=== PATIENT | male | born 1990 | race Caucasian/White ===

== ENCOUNTER 2023-02-07 04:05 | Inpatient (IN) ==
--- OUTSIDE RECORDS SUMMARY | 2023-02-07 04:12 | External Medical Summary | Summary of Care ---
Author Name Unknown Organization [facility] Address [address] [place] [address] Phone [phone] Care Team Providers Care Loan Services Professional Name Role Phone Kike Garcia DO Primary Care Provider Reason for Visit * Reason Comments Ear Pain Encounter Details Date Type Department Care Team Description 11/10/2022 Convenient Care Visit [facility] [address] [place] [address] Rebekah Ling PA-C [address], [place] [id number] Dysfunction of right eustachian tube*; Right otitis media with effusion Allergies No known active allergiesdocumented as of this encounter (statuses as of 11/10/2022) Medications Medication Sig Dispensed Refills Start Date End Date Status Indomethacin ER 75 MG Oral Capsule Extended Release (Indocin SR)Indications:Gout of big toe Take by mouth 1 Capsule in the morning. 60 Capsule 5 11/10/2021 Active Losartan Potassium-HCTZ 100-25 MG Oral Tablet (Hyzaar) Take 1 Tablet by mouth in the morning. 90 Tablet 3 03/29/2022 Active Cetirizine HCl 10 MG Oral CapsuleIndications: Chronic rhinitis Take 1 Capsule by mouth in the morning. 30 Capsule 1 09/26/2022 Active methylPREDNISolone 4 MG Oral Tablet Therapy Pack (Medrol Dosepack)Indication s:Dysfunction of right eustachian tube follow package directions 21 Tablet 0 11/10/2022 Active documented as of this encounter (statuses as of 11/10/2022) Active Problems Problem Noted Date Gout of big toe 05/02/2022 Body mass index (BMI) of 50.0 to 59.9 in adult 01/24/2022 Overview: Per Obesity protocol Prediabetes 11/22/2021 Overview: Per Prediabetes protocol Hypertensive urgency 11/10/2021 HTN, goal below 140/90 11/10/2021 Chronic pain of right knee 11/10/2021 Morbid obesity due to excess calories Ambulatory dysfunction 11/10/2021 Primary hypercoagulable state 04/21/2009 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 documented as of this encounter (statuses as of 11/10/2022) Resolved Problems Problem Noted Date Resolved Date OBESITY, PEDS, BMI 99TH PERCENTL OR GREATER 04/1408/10/2011 Overview: Per Obesity Taxonomy Diarrhea 01/15/2009 02/17/2012 Nausea with vomiting 01/15/2009 08/10/2011 OBESITY, UNSPECIFIED 08/22/2000 05/07/2009 Overview: Per Obesity Taxonomy Abnormal weight gain 11/02/1998 08/10/2011 Behavioral problems 05/08/1997 08/10/2011 Overview: ICD-10 update of inactive term documented as of this encounter (statuses as of 11/10/2022) Immunizations Name Administration Dates Next Due Hep A - Hepatitis A (ped/adole, 1-18 Yrs) 2007,05/22/2007 Meningococcal Conjugate Vaccine (Menactra/Menveo ) 11/21/2007 TDAP (age 11 and older)(Adacel) 05/22/2007 Varicella Vaccine (Chicken Pox) 05/22/2007 documented as of this encounter Social History Tobacco Use Types Packs/Day Years Used Date Smoking Tobacco: Never Smokeless Tobacco: Current Chew Tobacco Cessation:Ready to Q uit: Not Asked; Counseling Given: Not Answered Comments:10 cans a week X 4 years Alcohol Use Standard Drinks/Week Comments Yes 0 (1 standard drink = 0.6 oz pur e alcohol) Occassionally: once a month Sex Assigned at Date Recorded Not on file Job Start Date Occupation Industry Not on file Not on file Not on file documented as of this encounter Last Filed Vital Signs Vital Sign Reading Time Taken Comments Blood Pressure 140/80 11/10/2022 5:05 PM EDT Pulse 97 11/10/2022 5:05 PM EDT Temperature 36.8 C (98.2 F) 11/10/2022 5:05 PM ED T Respiratory Rate 16 11/10/2022 5:05 PM EDT Oxygen Saturation 96% 11/10/2022 5:05 PM EDT Inhaled Oxygen Concentration - - Weight 178.3 kg (393 lb) 11/10/2022 5:05 PM EDT Height 185.4 cm (6' 1") 11/10/2022 5:05 PM EDT Body Mass Index 51.85 11/10/2022 5:05 PM EDT documented in this encounter Patient Instructions * Patient Instructions* Rebekah Ling PA-C - 11/10/2022 5:56 PM EDT Try some gum and this might help your ear pop documented in this encounter Progress Notes * Rebekah Ling PA-C - 11/10/2022 5:46 PM EDT Subjective: Nursing Notes: Bruna Damon, RT 11/10/22 1709 Signed [place] is a 32 year old male who presents to walk-in clinic today complaining of Chief Complaint Patient presents with Ear Pain Main Symptoms: RT ear pain, slight congestion How lon day Tried: nothing Pt accompanied by: self Sx are right ear pain x 1 d. Have similar about 6-7 weeks ago and amoxicillin- clav that he took forsalivary gland infection seemed to help. Did not want to let it go this time. Denies neck pain or other upper respiratory infection related symptoms no sick contacts at home. Sig med hx/risk factors: obesity no flu shot this year. Review of Systems Constitutional: Negative. Negative for activity change, appetite change, fatigue and fever. HENT: Positive for ear pain (right with feeling of water deep in ear with pressure). Negative for congestion, postnasal drip, rhinorrhea, sinus pressure, sinus pain, sore throat and voice change. Eyes: Negative for discharge and redness. Respiratory: Negative for cough, chest tightness, shortness of breath and wheezing. Cardiovascular: Negative for chest pain. Musculoskeletal: Negative for arthralgias, neck pain and neck stiffness. Allergic/Immunologic: Negative for environmental allergies. Neurological: Negative for dizziness. Hematological: Negative for adenopathy. PMH: Patient Active Problem List Diagnosis Code EYE ANOMALY NOS - Lazy Eye Q15.9 COAGULAT DEFECT NEC-NOS - Factor V D68.9 Primary hypercoagulable state ([facility]) D68.59 Hypertensive urgency I16.0 HTN, goal below 140/90 I10 Chronic pain of right knee M25.561, G89.29 Morbid obesity due to excess calories ([facility]) E66.01 Ambulatory dysfunction R26.2 Prediabetes R73.03 Body mass index (BMI) of 50.0 to 59.9 in adult ([facility]) Z68.43 Gout of big toe M10.9 Current Outpatient Medications Medication Sig Dispense Refill Indomethacin ER 75 MG Oral Capsule Extended Release (Indocin SR) Take by mouth 1 Capsule in the morning. 60 Capsule 5 Losartan Potassium-HCTZ 100-25 MG Oral Tablet (Hyzaar) Take 1 Tablet by mouth in the morning. 90 Tablet 3 Cetirizine HCl 10 MG Oral Capsule Take 1 Capsule by mouth in the morning. 30 Capsule 1 methylPREDNISolone 4 MG Oral Tablet Therapy Pack (Medrol Dosepack) follow package directions 21 Tablet 0 No current facility-administered medications for this visit. Past Medical History: Diagnosis Date Obesity, BMI not known Past Surgical History: Procedure Laterality Date NONE Review of patient's allergies indicates: No Known Allergies Objective: BP 140/80 (BP Site: Left Arm, BP Position: Sitting, BP Cuff Size: Regular) | Pulse 97 | Temp 36.8 C (98.2 F) (Tympanic) | Resp 16 | Ht 1.854 m (6' 1") | Wt (!) 178.3 kg (393 lb) | SpO2 96% | BMI 51.85 kg/m | BSA 3.03 m Physical Exam Constitutional: Appearance: Normal appearance. He is obese. HENT: Head: Normocephalic. Right Ear: Ear canal and external ear normal. Left Ear: Tympanic membrane, ear canal and external ear normal. Ears: Comments: R TM not infection but appears to have effusion Nose: No congestion or rhinorrhea. Mouth/Throat: Pharynx: No oropharyngeal exudate or posterior oropharyngeal erythema. Eyes: Extraocular Movements: Extraocular movements intact. Conjunctiva/sclera: Conjunctivae normal. Cardiovascular: Rate and Rhythm: Normal rate and regular rhythm. Heart sounds: Normal heart sounds. Pulmonary: Effort: Pulmonary effort is normal. Breath sounds: Normal breath sounds. No wheezing or rhonchi. Musculoskeletal: Cervical back: Normal range of motion. No rigidity or tenderness. No muscular tenderness. Lymphadenopathy: Cervical: No cervical adenopathy. Skin: Findings: No rash. Neurological: Mental Status: He is alert and oriented to person, place, and time. Psychiatric: Mood and Affect: Mood normal. Thought Content: Thought content normal. Judgment: Judgment normal. ASSESSMENT/PLAN: Dysfunction of right eustachian tube (Primary) - methylPREDNISolone 4 MG Oral Tablet Therapy Pack (Medrol Dosepack); follow package directions Right otitis media with effusion Patient Instructions Try some gum and this might help your ear pop Discussed OME and eustachian tube dysfunction Return instruction reviewed with pt in detail. Reasons to report to the ED were also reviewed. Voiced understanding Advised to follow up if no improvement in 3-5days. Rebekah Ling PA-C documented in this encounter Nursing Notes * RT Rosa - 11/10/2022 5:06 PM EDT [place] is a 32 year old male who presents to walk-in clinic today complaining of Chief Complaint Patient presents with Ear Pain Main Symptoms: RT ear pain, slight congestion How lon day Tried: nothing Pt accompanied by: self documented in this encounter Plan of Treatment Upcoming Encounters Date Type Specialty Care Team Description 02/01/2023 Office Visit Cardiology Nuno, STEVIE Senior [address] [place] [id number] 11/09/2023 Office Visit Family Medicine Kike Garcia DO [address] [place] [address] Health Maintenance Due Date Last Done Comments COVID-19 Vaccine (#1) 1991 Depression Screening 2003 Albumin/Creatinine Ratio 04/17/2009 DTaP,Tdap,and Td Vaccines (7 - Td or Tdap) 05/21/2017 05/22/2007, 01/16/1997, 11/03/1992, Additional history exists Influenza Vaccine (FLU shot) (#1) 2022 HbA1c 11/10/2022 11/10/2021, 04/14, 09/29/2000, Additional history exists GFR 04/04/2023 04/04/2022, 10/15, 03/12/2009 Hepatitis B Completed 04/27/1993, 11/14, 11/03/1992 MENINGOCOCCAL (MENACTRA/MENVEO) Completed 11/21/2007 GARDASIL-HPV IMMUNIZATION SERIES Aged Out No longer eligible based on patient's age to complete this topic Pneumococcal Vaccine: Pediatrics (0 to 5 Years) and At-Risk Patients (6 to 64 Years) Aged Out No longer eligible based on patient's age to complete this topic documented as of this encounter Medical Devices Not on filedocumented as of this encounter Visit Diagnoses Diagnosis Dysfunction of right eustachian tube- Primary Dysfunction of Eustachian tube Right otitis media with effusion Nonsuppurative otitis media, not specified as acute or chronic documented in this encounter Care Teams Loan Services Professional Relationship Specialty Start Date End Date Kike Garcia DO [address] [place] [address] PCP - General Family Medicine 11/10/21 documented as of this encounter
--- OUTSIDE RECORDS SUMMARY | 2023-02-07 04:12 | External Medical Summary ---
Author Name Unknown Address Unknown Organization [id number]:[facility] [place] [address] [place] [address] Laboratory Report Ordering Provider Test Date Status ANGÉLICA DEMPSEY 02/01/2023 09:11:33 Final Observation Date Value Abnormality Reference (Units ) Status Uric Acid 02/01/2023 09:11:33 9.2 Above high normal 3. 4-7.0 (mg/dL) Final Performing Location [facility] - [address] [place] [address]
--- OUTSIDE RECORDS SUMMARY | 2023-02-07 04:12 | External Medical Summary | Summary of Care ---
Author Name Unknown Organization [facility] Address [address] [place] [address] Phone [phone] Care Team Providers Care Mimeographer Name Role Phone Kike Garcia DO Primary Care Provider Reason for Visit * Reason Comments Outpatient Testing Encounter Details Date Type Department Care Team (Late st Contact Info) Description 02/01/2023 9:50 AM EST Laboratory Laboratory, [facility] [address] [place] [address] [facility] [address] [place] [address] HTN, goal below 140/90; Dyslipidemia, goal LDL below 130; Prediabetes; Gout of big toe; Sinus tachycardia Allergies No known active allergiesdocumented as of this encounter (statuses as of 02/01/2023) Medications Medication Sig Dispensed Refills Start Date End Date Status Indomethacin ER 75 MG Oral Capsule Extended Release (Indocin SR)Indications:Gout of big toe Take by mouth 1 Capsule in the morning. 60 Capsule 5 11/10/2021 Active amLODIPine Besylate 2.5 MG Oral Tablet (Norvasc)Indications: Sinus tachycardia,HTN, goal below 140/90,LVH (left ventricular hypertrophy) Take 1 Tablet by mouth in the morning. 34 Tablet 11 02/01/2023 Active Losartan Potassium-HCTZ 100-25 MG Oral Tablet (Hyzaar)Indications:S inus tachycardia,HTN, goal below 140/90,LVH (left ventricular hypertrophy) Take 1 Tablet by mouth in the morning. 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 documented as of this encounter (statuses as of 02/01/2023) Resolved Problems Problem Noted Date Diagnosed Date Resolved Date OBESITY, PEDS, BMI 99TH PERCENTL OR GREATER 05/07/2009 08/10/2011 Overview: Per Obesity Taxonomy Diarrhea 01/15/2009 02/17/2012 Nausea with vomiting 01/15/2009 012 OBESITY, UNSPECIFIED 08/22/2000 010 Overview: Per Obesity Taxonomy Abnormal weight gain 11/02/1998 012 Behavioral problems 05/08/1997 08/10/19 12 Overview: ICD-10 update of inactive term documented as of this encounter (statuses as of 02/01/2023) Immunizations Name Administration Dates Next Due Hep A - Hepatitis A (ped/adole, 1-18 Yrs) 2007,05/22/2007 Meningococcal Conjugate Vaccine (Menactra/Menveo ) 11/21/2007 TDAP (age 11 and older)(Adacel) 05/22/2007 Varicella Vaccine (Chicken Pox) 05/22/2007 documented as of this encounter Social History Tobacco Use Types Packs/Day Years Used Date Smoking Tobacco: Never Smokeless Tobacco: Current Chew Comments:10 cans a week X 4 years Alcohol Use Standard Drinks/Week Comments Yes 0 (1 standard drink = 0.6 oz pur e alcohol) Occassionally: once a month Sex and Gender Information Value Date Recorded Sex Assigned at Not on file Gender Identity Not on file Sexual Orientation Not on file Job Start Date Occupation Industry Not on file Not on file Not on file documented as of this encounter Plan of Treatment Upcoming Encounters Date Type Department Care Team (Late st Contact Info) Description 04/20/2023 3:00 PM EST Cardiac Studies Cardiac Studies, [facility] [address] [place] [address] 11/09/2023 5:40 PM EDT Office Visit Family Practice [facility] [address] [place] [address] Kike Garcia, [address] [place] [phone] Pending Results Name Type Priority Associated Diagnoses Date /Time CBC WITH WBC DIFFERENTIAL Lab Routine HTN, goal below 140/90 02/01/2023 9:11 AM EST COMPREHENSIVE METABOLIC PANEL Lab Routine Dyslipidemia, goal LDL below 130 02/01/2023 9:11 AM EST HEMOGLOBIN A1C Lab Routine Prediabetes 02/01/2023 9:11 AM EST LIPID PANEL WITH DIRECT LDL IF TG IS HIGH Lab Routine Dyslipidemia, goal LDL below 130 02/01/2023 9:11 AM EST URIC ACID Lab Routine Gout of big toe 02/01/2023 9:11 AM EST MAGNESIUM Lab Routine Sinus tachycardia HTN, goal below 140/90 02/01/2023 9:11 AM EST TSH WITH FREE T4 IF INDICATED Lab Routine Sinus tachycardia HTN, goal below 140/90 02/01/2023 9:11 AM EST CBC Lab Routine HTN, goal below 140/90 02/01/2023 9:11 AM EST DIFFERENTIAL, AUTOMATED Lab Routine HTN, goal below 140/90 02/01/2023 9:11 AM EST Health Maintenance Due Date Last Done Comments [...] as of this encounter Visit Diagnoses Diagnosis HTN, goal below 140/90 Unspecified essential hypertension Dyslipidemia, goal LDL below 130 Other and unspecified hyperlipidemia Prediabetes Other abnormal glucose Gout of big toe Acute gouty arthropathy Sinus tachycardia Other specified cardiac dysrhythmias documented in this encounter Care Teams Mimeographer Relationship Specialty Start Date End Date Kike Garcia DO [address] [place] [id number] PCP - General Family Medicine 11/10/21 documented as of this encounter
--- OUTSIDE RECORDS SUMMARY | 2023-02-07 04:12 | External Medical Summary | Summary of Care ---
Author Name Unknown Organization [facility] Address [address] [place] [address] Phone [phone] Care Team Providers Care Quality Assurance Auditor Name Role Phone Kike Garcia DO Primary Care Provider Reason for Visit * Reason Comments Ear Pain Encounter Details Date Type Department Care Team Description 09/26/2022 Convenient Care Visit [facility] [address] [place] [address] Rebekah Ling PA-Tiffany [address] [place], [place] [id number] Dysfunction of right eustachian tube*; Chronic rhinitis; Salivary gland disorder; Non-recurrent acute serous otitis media of right ear Allergies No known active allergiesdocumented as of this encounter (statuses as of 09/26/2022) Medications Medication Sig Dispensed Refills Start Date End Date Status Indomethacin ER 75 MG Oral Capsule Extended Release (Indocin SR)Indications:Gout of big toe Take by mouth 1 Capsule in the morning. 60 Capsule 5 11/10/2021 Active Losartan Potassium-HCTZ 100-25 MG Oral Tablet (Hyzaar) Take 1 Tablet by mouth in the morning. 90 Tablet 3 03/29/2022 Active Cetirizine HCl 10 MG Oral CapsuleIndications:C hronic rhinitis Take 1 Capsule by mouth in the morning. 30 Capsule 1 09/26/2022 Active Amoxicillin-Pot Clavulanate 500-125 MG Oral Tablet (Augmentin)Indicatio ns:Salivary gland disorder Take 1 Tablet by mouth in the morning and 1 Tablet before bedtime. Do all this for 10 days. 20 Tablet 0 09/26/2022 10/06/2022 Active documented as of this encounter (statuses as of 09/26/2022) Active Problems Problem Noted Date Gout of [...] as of this encounter (statuses as of 09/26/2022) Resolved Problems Problem Noted Date Resolved Date OBESITY, PEDS, BMI 99TH PERCENTL OR GREATER 04/1408/10/2011 Overview: Per Obesity Taxonomy Diarrhea 01/15/2009 02/17/2012 Nausea with vomiting 01/15/2009 08/10/2011 OBESITY, UNSPECIFIED 08/22/2000 05/07/2009 Overview: Per Obesity Taxonomy Abnormal weight gain 11/02/1998 08/10/2011 Behavioral problems 05/08/1997 08/10/2011 Overview: ICD-10 update of inactive term documented as of this encounter (statuses as of 09/26/2022) Immunizations Name Administration Dates Next Due Hep [...] Sign Reading Time Taken Comments Blood Pressure 136/86 09/26/2022 9:42 AM EDT Pulse 107 09/26/2022 9:42 AM EDT Temperature 36.4 C (97.5 F) 09/26/2022 9:42 AM ED T Respiratory Rate 17 09/26/2022 9:42 AM EDT Oxygen Saturation 97% 09/26/2022 9:42 AM EDT Inhaled Oxygen Concentration - - Weight - - Height - - Body Mass Index - - documented in this encounter Patient Instructions * Patient Instructions* Rebekah Ling PA-C - 09/26/2022 10:06 AM EDT Lemon drops, sugarless Can try gum, Avoid internal pressure to ear documented in this encounter Progress Notes * Rebekah Ling PA-C - 09/26/2022 9:54 AM EDT Subjective: Nursing Notes: Denisa Condon LPN 09/26/22 0957 Signed [place] is a 32 year old male who presents to walk-in clinic today complaining of Chief Complaint Patient presents with Ear Pain Main Symptoms: painful started in the middle of the day. R ear started in the back of his ear down to his jaw and pressure as well and feels like water is in his ear and does have sensitivity as well Cause: unknown How long: Tried: steam, warm compress, warm water, tylenol which did not help, dayquil capsules as well whichdid not help Pt accompanied by: Self Sx are right ear pain that started inferior and then into the ear and above, feels like there is fullness and pressure and some discomfort into the right side of neck both below ear and into the areabelow mid Discomfort and all symptoms come and go and sometimes how he turns head will inc or decrease pressure and discomfort Not swimming no sick contacts at home. Sig med hx/risk factors: prediabetes and obesity Review of Systems Constitutional: Negative for activity change, appetite change, fatigue and fever. HENT: Positive for ear pain (right), postnasal drip and rhinorrhea (has had for months). Negative for congestion, sinus pain, sore throat and voice change. Eyes: Negative for discharge and redness. Respiratory: Negative for cough, chest tightness, shortness of breath and wheezing. Cardiovascular: Negative for chest pain. Gastrointestinal: Negative for abdominal pain, diarrhea, nausea and vomiting. Musculoskeletal: Positive for neck pain (dull, usually mild like a bruise, inferior to the ear and right side just below jaw in middle). Negative for arthralgias and neck stiffness. Skin: Negative. Allergic/Immunologic: Negative for environmental allergies. Neurological: Negative for dizziness. Hematological: Negative for adenopathy. 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 60 Capsule 5 Losartan Potassium-HCTZ 100-25 MG Oral Tablet (Hyzaar) Take 1 Tablet by mouth in the morning. 90 Tablet 3 Cetirizine HCl 10 MG Oral Capsule Take 1 Capsule by mouth in the morning. 30 Capsule 1 Amoxicillin-Pot Clavulanate 500-125 MG Oral Tablet (Augmentin) Take 1 Tablet by mouth in the morning and 1 Tablet before bedtime. Do all this for 10 days. 20 Tablet 0 No current facility-administered medications for this visit. Past Medical History: Diagnosis Date Obesity, BMI not known Past Surgical History: Procedure Laterality Date NONE Review of patient's allergies indicates: No Known Allergies Objective: BP 136/86 | Pulse 107 | Temp 36.4 C (97.5 F) (Tympanic) | Resp 17 | SpO2 97% Physical Exam Constitutional: Appearance: Normal appearance. He is normal weight. HENT: Head: Normocephalic. Right Ear: Ear canal and external ear normal. Left Ear: Tympanic membrane, ear canal and external ear normal. Ears: Comments: TM on the R dull Nose: Rhinorrhea present. No congestion. Mouth/Throat: Pharynx: No oropharyngeal exudate or posterior oropharyngeal erythema. Eyes: Extraocular Movements: Extraocular movements intact. Conjunctiva/sclera: Conjunctivae normal. Cardiovascular: Rate and Rhythm: Normal rate and regular rhythm. Heart sounds: Normal heart sounds. Pulmonary: Effort: Pulmonary effort is normal. Breath sounds: Normal breath sounds. No wheezing or rhonchi. Musculoskeletal: General: Normal range of motion. Cervical back: Normal range of motion. Tenderness (mild to moderate inferior to ear and in area of salivary gland inferior the mandible on right) present. No rigidity. No muscular tenderness. Lymphadenopathy: Cervical: No cervical adenopathy. Skin: Findings: No rash. Neurological: Mental Status: He is alert and oriented to person, place, and time. Psychiatric: Mood and Affect: Mood normal. Thought Content: Thought content normal. Judgment: Judgment normal. ASSESSMENT/PLAN: Dysfunction of right eustachian tube (Primary) Chronic rhinitis - Cetirizine HCl 10 MG Oral Capsule; Take 1 Capsule by mouth in the morning. Salivary gland disorder - Amoxicillin-Pot Clavulanate 500-125 MG Oral Tablet (Augmentin); Take 1 Tablet by mouth in the morning and 1 Tablet before bedtime. Do all this for 10 days. Non-recurrent acute serous otitis media of right ear Patient Instructions Lemon drops, sugarless Can try gum, Avoid internal pressure to ear Follow Up: Return in about 4 weeks (around 10/24/2022) for Clinic Visit. | For: Clinic Visit Discussed that I think there is some fluid in ear and might be assoc w allergies so starting on zrtec Might be reason for the discomfort, discussed that think also might have salivary gland disorder Return instruction reviewed with pt in detail. Reasons to report to the ED were also reviewed. Voiced understanding Advised to follow up if no improvement in 3-5days. Rebekah Ling PA-C documented in this encounter Nursing Notes * Denisa Condon LPN - 09/26/2022 9:42 AM EDT [place] is a 32 year old male who presents to walk-in clinic today complaining of Chief Complaint Patient presents with Ear Pain Main Symptoms: painful started in the middle of the day. R ear started in the back of his ear down to his jaw and pressure as well and feels like water is in his ear and does have sensitivity as well Cause: unknown How long: Tried: steam, warm compress, warm water, tylenol which did not help, dayquil capsules as well whichdid not help Pt accompanied by: Self documented in this encounter Miscellaneous Notes * Pt Handout (on AVS) - Rebekah Ling PA-C - 09/26/2022 10:05 AM EDT [id number] Salivary Gland Swelling, Uncertain Cause Salivary glands make saliva in response to food in your mouth. Saliva is mostly water. It also has minerals and proteins that help break down food and keep the mouth and teeth healthy. There are 3 pairs of salivary glands: Parotid glands. In front of the ear. Submandibular glands. Below the jaw. Sublingual glands. Below the tongue. Each gland has a tube (duct) that carries saliva from the gland into the mouth. The salivary glands can sometimes get swollen. Causes can include: Viral infection (such as childhood mumps) Bacterial infections Sjgren syndrome Diabetes Malnutrition Sarcoidosis Blocked salivary duct (from stones or tumors) Certain medicines can affect salivary flow. This can lead to swollen glands. Tell your healthcare provider about all of the medicines you take. Tests are done to find the cause of the swelling. These may include blood tests, X-ray, ultrasound,CT scan, or injecting dye into the duct to look for blockage. Treatment depends on the exact cause of the swelling. Home care If the area is painful, you can take dayj-mhw-hfcndvy medicines such as acetaminophen or ibuprofen, unless you were prescribed another medicine. If you have chronic liver or kidney disease or everhad a stomach ulcer or gastrointestinal bleeding, talk with your healthcare provider before using these medicines. Wetting a cloth with warm water and putting it over the affected gland for 10 to 15 minutes at a time can also help ease pain. To help prevent blockages and infections: o Drink 6 to 8 glasses of fluid per day (such as water, tea, and clear soup) to keep well-hydrated. o If you smoke, ask your healthcare provider for help to quit. Smoking makes salivary gland stones more likely. o Maintain good dental hygiene. [place] and floss your teeth daily. See your dentist for regular cleanings. Follow-up care Follow up with your healthcare provider, or as advised. See your provider for further exams and testing. If you have been referred to a specialist, make an appointment right away. When to get medical advice Call your healthcare provider right away if any of these occur: More pain or swelling in the gland Unable to open mouth or pain when opening mouth Fever of 100.4F (38C) or higher, or as advised by your provider Redness over the gland Fluid (pus) draining into the mouth Trouble breathing or swallowing Any new symptoms Prevention Here are steps you can take to help prevent an infection: Keep good handwashing habits. Don?t have close contact with people who have sore throats, colds, or other upper respiratory infections. Don?t smoke and stay away from secondhand smoke. Stay up-to-date with all of your vaccines. Last Reviewed Date: 12/14/202119999210-5495 [employer]. All rights reserved. This information is not intended as a substitute for professional medical care. Always follow your healthcare professional's instructions. documented in this encounter Plan of Treatment Upcoming Encounters Date Type Specialty Care Team Description 11/08/2022 Office Visit Family Medicine Kike Garcia DO [address] [place] [address] 02/01/2023 Office Visit Cardiology Sunita Reina CRNP [address] [place] [id number] Health Maintenance Due Date Last Done Comments COVID-19 Vaccine (#1) 1991 Depression Screening, Annual for Pts 12 and Over 2003 Albumin/Creatinine Ratio 04/17/2009 DTaP,Tdap,and Td Vaccines (7 - Td or Tdap) 05/21/2017 05/22/2007, 01/16/1997, 11/03/1992, Additional history exists Influenza Vaccine (FLU shot) (#1) 2022 HbA1c 11/10/2022 11/10/2021, 04/14, 09/29/2000, Additional history exists GFR 04/04/2023 04/04/2022, 10/15, 03/12/2009 Hepatitis B Completed 04/27/1993, 11/14, 11/03/1992 MENINGOCOCCAL (MENACTRA/MENVEO) Completed 11/21/2007 Hepatitis C Screening Completed 11/10/2021 , 11/10/2021, 11/10/2021 GARDASIL-HPV IMMUNIZATION SERIES Aged Out No longer [...] eustachian tube- Primary Dysfunction of Eustachian tube Chronic rhinitis Salivary gland disorder Unspecified disease of the salivary glands Non-recurrent acute serous otitis media of right ear documented in this encounter Care Teams Quality Assurance Auditor Relationship Specialty Start Date End Date Kike Garcia DO [address] [place] [id number] PCP - General Family Medicine 11/10/21 documented as of this encounter"
--- OUTSIDE RECORDS SUMMARY | 2023-02-07 04:12 | External Medical Summary ---
Author Name Unknown Address Unknown Organization [id number]:[facility] [place] [facility] [place] [address] [facility] [address] Laboratory Report Ordering Provider Test Date Status ANGÉLICA DEMPSEY 02/01/2023 09:11:33 Final Observation Date Value Abnormality Reference (Units ) Status HbA1C 02/01/2023 09:11:33 5.8 Above high normal 4. 0-5.6 (%) Final The use of HbA1c to monitor glycemic status is based on normal hemoglobin and HbA composition. This test should not be used in patients with abnormal hemoglobin that affects the half life of the red blood cell or the in vivo glycation rates. Glucose, estimated average 02/01/2023 09:11:33 120 <126 (mg/dL) Final Performing Location [facility] [place] [facility] [address] [facility] [address]
--- OUTSIDE RECORDS SUMMARY | 2023-02-07 04:12 | External Medical Summary ---
Author Name Unknown Address Unknown Organization [id number]:[facility]ATORY [facility] [place] - [address] [facility] [address] [facility] [address] Laboratory Report Ordering Provider Test Date Status TERESA SAUCEDO 02/01/2023 09:11:33 Final Observation Date Value Abnormality Reference (Units ) Status TSH 02/01/2023 09:11:33 3.70 0.27-4.20 (uIU/mL) Final Performing Location LAB[facility]ORY [facility] [place] - [address] [facility] [address]
--- OUTSIDE RECORDS SUMMARY | 2023-02-07 04:12 | External Medical Summary ---
Author Name Unknown Address Unknown Organization [id number]:LABORATORY [facility] [place] [address] - [address] [place] [address] Laboratory Report Ordering Provider Test Date Status ANGÉLICA DEMPSEY 02/01/2023 09:11:33 Final Observation Date Value Abnormality Reference (Units ) Status WBC, Total 02/01/2023 09:11:33 9.08 4.00-10.8 0 (K/uL) Final RBC 02/01/2023 09:11:33 5.27 4.50-5.25 (M/uL) Final Hemoglobin 02/01/2023 09:11:33 15.3 14.0-16.8 (g/dL) Final HCT 02/01/2023 09:11:33 45.8 40.0-48.4 (%) Final MCV 02/01/2023 09:11:33 86.9 82.0-99.5 (fL) Final MCH 02/01/2023 09:11:33 29.0 27.0-34.0 (pg) Final MCHC 02/01/2023 09:11:33 33.4 32.0-36.0 (g/dL) Final RDW 02/01/2023 09:11:33 12.7 11.5-15.5 (%) Final Platelets 02/01/2023 09:11:33 247 140-400 (K /uL) Final MPV 02/01/2023 09:11:33 11.0 6.6-11.1 ( fL) Final Performing Location LABORATORY [facility] [place] [facility] [place] [address]
--- OUTSIDE RECORDS SUMMARY | 2023-02-07 04:12 | External Medical Summary ---
Author Name Unknown Address Unknown Organization [id number]:[facility]ORY [facility] [place] - [address] [facility] [place] [address] Laboratory Report Ordering Provider Test Date Status ANGÉLICA DEMPSEY 02/01/2023 09:11:33 Final Observation Date Value Abnormality Reference (Units ) Status Triglyceride 02/01/2023 09:11:33 118 <=174 ( mg/dL) Final Triglyceride Reference Range s (mg/dL):
<150 Acceptable
150-174 Borderline high
175-499 High
>=500 Very high Cholesterol 02/01/2023 09:11:33 174 <200 (mg /dL) Final Total Cholesterol Reference Ranges (mg/dL):
<200 Desirable
200-239 Borderline high
>=240 High HDL 02/01/2023 09:11:33 30 Below low normal >39 (mg/dL) Final HDL Cholesterol Reference Ra nges (mg/dL):
>=60 High (Desirable)
<50 Low (Undesirable) For Females
<40 Low (Undesirable) For Males NON-HDL CHOLESTEROL 02/01/2023 09:11:33 144 <=159 (mg/dL) Final Non-HDL Cholesterol Referenc e Range (mg/dL):
<100 Target level for high risk ASCVD patient
<130 Optimal for general population
130-159 Near optimal for general population
160-189 Borderline High
190-219 High
>=220 Very High LDL, (calculated) 02/01/2023 09:11:33 120 <= 129 (mg/dL) Final LDL Cholesterol Reference Ra nges (mg/dL):
<70 Target level for high risk ASCVD patient
<100 Optimal for general population
100-129 Near optimal for general population
130-159 Borderline high
160-189 High
>=190 Very high Performing Location LABORATORY [facility] [place] - [address] [facility] [address]
--- OUTSIDE RECORDS SUMMARY | 2023-02-07 04:12 | External Medical Summary ---
Author Name Unknown Address Unknown Organization K0G:LABORATORY [place] [address] - [address] [place] [address] Laboratory Report Ordering Provider Test Date Status ANGÉLICA DEMPSEY 02/01/2023 09:11:33 Final Observation Date Value Abnormality Reference (Units ) Status BUN 02/01/2023 09:11:33 12 6-20 (mg/dL) Final Creatinine 02/01/2023 09:11:33 1.3 Above high normal 0.6-1.2 (mg/dL) Final Glomerular filtration rate/1.73 sq M.predicted [Volume Rate/Area] in Serum, Plasma or Blood by Creatinine-based formula (CKD-EPI) 02/01/2023 09:11:33 75 >=60 (mL/min) Final eGFR is calculated based on the CKD-EPI 2020 equation SODIUM 02/01/2023 09:11:33 140 135-146 (m mol/L) Final Potassium 02/01/2023 09:11:33 4.0 3.5-5.1 (m mol/L) Final Cl 02/01/2023 09:11:33 103 98-107 (mm ol/L) Final CO2 02/01/2023 09:11:33 26 22-32 (mmo l/L) Final Anion gap 02/01/2023 09:11:33 11 7-15 (mmol /L) Final Glucose 02/01/2023 09:11:33 101 70-120 (mg /dL) Final Albumin 02/01/2023 09:11:33 4.2 3.8-5.0 (g /dL) Final AST (Aspartate aminotransferase) 02/01/2023 09:11:33 20 10-50 (U/L) Final Alk Phos 02/01/2023 09:11:33 83 35-130 (U/ L) Final Bilirubin, Total 02/01/2023 09:11:33 0.5 <=1 .2 (mg/dL) Final Calcium 02/01/2023 09:11:33 9.3 8.4-10.2 ( mg/dL) Final Protein 02/01/2023 09:11:33 6.9 6.0-8.3 (g /dL) Final ALT (Alanine aminotransferase) 02/01/2023 09:11:33 40 10-50 (U/L) Final Performing Location LABORATORY [place] [address] - [address] [facility] [address]
--- OUTSIDE RECORDS SUMMARY | 2023-02-07 04:12 | External Medical Summary ---
Author Name Unknown Address Unknown Organization [id number] [address] [place] [address] Laboratory Report Ordering Provider Test Date Status ANGÉLICA DEMPSEY 02/01/2023 09:11:33 Final Observation Date Value Abnormality Reference (Units ) Status SYNC LEUKOCYTES IN BLOOD BY AUTOMATED COUNT 02/01/2023 09:11:33 9.08 4.00-10.80 (K/uL) Final Segs 02/01/2023 09:11:33 63.7 40.0-75.0 (%) Final Lymphs % 02/01/2023 09:11:33 26.2 18.0-42.0 (%) Final Monos 02/01/2023 09:11:33 7.6 1.0-11.0 (%) Final Eosinophils 02/01/2023 09:11:33 2.2 0.0-6.0 (%) Final Basos 02/01/2023 09:11:33 0.3 0.0-2.0 (%) Final Absolute Segs 02/01/2023 09:11:33 5.78 1.80-7.70 (K/uL) Final Lymphs, absolute 02/01/2023 09:11:33 2.38 1.00-4.80 (K/ul) Final Monos, Abs 02/01/2023 09:11:33 0.69 0.00-1.10 (K/uL) Final Eos, Abs 02/01/2023 09:11:33 0.20 0.00-0.70 (K/uL) Final Basos, Abs 02/01/2023 09:11:33 0.03 0.00-0.20 (K/uL) Final Performing Location LABORATORY [facility] [place] [address] - [address] [place] [address]
--- OUTSIDE RECORDS SUMMARY | 2023-02-07 04:12 | External Medical Summary | Summary of Care ---
Author Name Unknown Organization [facility] Address [address] [place] [address] Phone [phone] Care Team Providers Care Event Set Up Specialist Name Role Phone Kike Garcia DO Primary Care Provider Reason for Referral * Precert (Within 10 days (routine)) - Authorized Specialty Diagnoses / Procedures Referred By Contac t Referred To Contact Cardiac Studies Diagnoses Sinus tachycardia HTN, goal below 140/90 LVH (left ventricular hypertrophy) Procedures ECHO, COMPLETE (2D), TRANS-THORACIC Sunita Reina CRNP [address] [place] [address] Referral ID Status Reason Start Date Expiration Date V isits Requested Visits Authorized [id number] Authorized Precert 02/01/2023 999 999 Reason for Visit * Reason Comments Follow Up Encounter Details Date Type Department Care Team (Late st Contact Info) Description 02/01/2023 9:00 AM EST Office Visit Cardiology, [facility] [address] [place] [place] [address] Sunita Reina CRNP [address] [employer] [place] [place] [address] HTN, goal below 140/90*; LVH (left ventricular hypertrophy); Sinus tachycardia Allergies No known active allergiesdocumented as of this encounter (statuses as of 02/01/2023) Medications Medication Sig Dispensed Refills Start Date End Date Status Indomethacin ER 75 MG Oral Capsule Extended Release (Indocin SR)Indications:Go ut of big toe Take by mouth 1 Capsule in the morning. 60 Capsule 5 11/10/2021 Active amLODIPine Besylate 2.5 MG Oral Tablet (Norvasc)Indicati ons:Sinus tachycardia,HTN, goal below 140/90,LVH (left ventricular hypertrophy) Take 1 Tablet by mouth in the morning. 34 Tablet 11 02/01/2023 Active Losartan Potassium-HCTZ 100-25 MG Oral Tablet (Hyzaar)Indicatio ns:Sinus tachycardia,HTN, goal below 140/90,LVH (left ventricular hypertrophy) Take 1 Tablet by mouth in the morning. 90 Tablet 3 02/01/2023 Active Losartan Potassium-HCTZ 100-25 MG Oral Tablet (Hyzaar) Take 1 Tablet by mouth in the morning. 90 Tablet 3 03/29/2022 3 Discontinue d(Refill) Cetirizine HCl 10 MG Oral CapsuleIndication s:Chronic rhinitis Take 1 Capsule by mouth in the morning. 30 Capsule 1 09/26/2022 3 Discontinue d(Patient preference/ discontinua tion) methylPREDNISolon e 4 MG Oral Tablet Therapy Pack (Medrol Dosepack)Indicati ons:Dysfunction of right eustachian tube follow package directions 21 Tablet 0 11/10/2022 3 Discontinue d(End of Procedure) documented as of this encounter (statuses as [...] Sign Reading Time Taken Comments Blood Pressure 224/120 02/01/2023 8:41 AM EST Pulse 88 02/01/2023 8:41 AM EST Temperature - - Respiratory Rate 16 02/01/2023 8:41 AM EST Oxygen Saturation - - Inhaled Oxygen Concentration - - Weight 176.2 kg (388 lb 8 oz) 02/01/2023 8:41 AM EST Height - - Body Mass Index 51.26 11/10/2022 5:05 PM EDT documented in this encounter Patient Instructions * Patient Instructions* Sunita Reina CRNP - 02/01/2023 9:03 AM EST Labs today Schedule echo Restart lisinopril HCTZ Start Norvasc Come back and see cardiology in 4 weeks documented in this encounter Progress Notes * Sunita Reina CRNP - 02/01/2023 9:00 AM EST Cardiology Outpatient Visit 02/01/2023 Primary Electrical Parts Reconditioner: Formally Dr. Jeffries Past medical history: Hypertension with history of hypertensive urgency, 10/2021 Mild concentric LVH Morbid obesity, BMI >50 Medication noncompliance HPI 32-year-old male presenting to the cardiology office today in routine follow-up. Was last evaluatedby the undersigned approximately 10 months ago. At this time blood pressures were uncontrolled and losartan-hydrochlorothiazide was increased. Today the patient presents feeling generally well. However, initial blood pressure was markedly hypertensive at 224/120. On repeat 212/108. He is asymptomatic. Does not appear very interested in his health care during today's appointment. Yawning throughout the appointment. States that he is tired and the appointment is too early for him. Usually wakes up between noon and 5:00 p.m. daily. He has been noncompliant with his blood pressure medicine for quite some time. He denies chest pain shortness of breath or headache. No lower extremity edema. EKG today showing normal sinus rhythm, 81 beats per minute with possible LVH, QRS duration of 118. QTC stable at 476 milliseconds. Current Outpatient Medications Medication Sig Dispense Refill Indomethacin ER 75 MG Oral Capsule Extended Release (Indocin SR) Take by mouth 1 Capsule in the morning. 60 Capsule 5 amLODIPine Besylate 2.5 MG Oral Tablet (Norvasc) Take 1 Tablet by mouth in the morning. 34 Tablet 11 Losartan Potassium-HCTZ 100-25 MG Oral Tablet (Hyzaar) Take 1 Tablet by mouth in the morning. 90 Tablet 3 No current facility-administered medications for this visit. Past Medical History: Diagnosis Date Obesity, BMI not known Past Surgical History: Procedure Laterality Date NONE Social History Tobacco Use Smoking status: Never Smokeless tobacco: Current Types: Chew Tobacco comments: 10 cans a week X 4 years Substance Use Topics Alcohol use: Yes Comment: Occassionally: once a month Drug use: No Review of patient's allergies indicates: No Known Allergies Review of Systems: See HPI for pertinent positives. All others negative, other than those noted in HPI. Physical Exam BP (!) 224/120 (BP Site: Left Arm, BP Position: Sitting, BP Cuff Size: Large) | Pulse 88 | Resp 16 | Wt (!) 176.2 kg (388 lb 8 oz) | BMI 51.26 kg/m | BSA 3.01 m General: No acute distress. A+Ox3. HEENT: Normocephalic. Atraumatic. Conjunctiva and sclera clear. NECK: No carotid bruits. No JVD. Carotid upstrokes are brisk. Heart: RRR. S1 and S2 noted without murmur, rubs, gallops. PMI non displaced. Lungs: Clear to auscultation. No wheezes, rhonchi, rales. Abdomen: Normal bowel sounds. Soft. Nontender. No masses or organomegaly. No abdominal bruits. Extremities: No edema. No clubbing or cyanosis. Pulses: radial=2/4, posterior tibial=2/4, dorsalis pedis = 2/4. NEURO: No focal deficits. PSYCH: Normal. Lab data/imaging study review: Echo 12/2021 There was sinus tachycardia during the examination with rate of 100-105 bom. The examination is limited quality but adequate for evaluation of the referral indication. The LV wall thickness is mildly increased (concentric). The left ventricular wall motion is normal. The qualitative LV ejection fraction is 55-59% (normal). Grossly normal valve function in technically limited evaluation. Impression/Plan: 1. HTN, goal below 130/80 2. Sinus tachycardia Hypertension with history of hypertensive urgency 10/2021 Blood pressure markedly hypertensive today due to medication noncompliance. We had a lengthy discussion regarding the dangers of uncontrolled blood pressure including heart attack/heart failure, renal disease, and stroke. Recommend emergency department workup and care however patient declined. Restart losartan-hydrochlorothiazide 100-25 mg daily, refill provided. Patient was instructed to take daily in the evening as he is normally up at this hour. Encouraged him to set an alarm. Patient will likely require multiple medications to control blood pressure however this is contingent on his compliance. We will also start amlodipine 2.5 mg daily today. High likelihood of obstructive sleep apnea. Recommend screening on. Patient continues to decline atthis time. Encouraged weight loss and low sodium diet. Schedule echo To assess LV systolic function, wall motion, and LVH. Patient Instructions Labs today Schedule echo Restart lisinopril HCTZ Start Norvasc Come back and see cardiology in 4 weeks The patient agrees to the above plan and will call with additional questions or concerns. ER with all emergencies advised. Follow-up: Return in about 4 weeks (around 03/01/2023). | Check-out note: Labs today. Schedule echo. I spent a total of 45 minutes on the date of service in preparation, delivery, and documentation ofthe care provided to [place] excluding any time spent in the performance of separately billed services. STEVIE [facility], Department of Cardiology This chart was completed in part utilizing [email or web address] Textbook Time Speech Voice Recognition Software. Grammatical errors, random word insertions, prounoun errors, and incomplete sentences are an occasional consequence of this system due to software limitations, ambient noise, and hardware issues. Any formal questions or concerns about the content, text, or information contained within the body of this dictation should be directly addressed to the provider for clarification. documented in this encounter Procedure Notes * Dony Sanders MD - 02/01/2023 8:52 AM ESTAssociated Order(s): EKG REASON FOR STUDY: yearly recheck CONCLUSIONS: Normal sinus rhythm Left ventricular hypertrophy with secondary QRS widening and repolarization abnormality Abnormal ECG When compared with ECG of 10-NOV-2021 10:42, No significant change was found Ventricular Rate: 81 Atrial Rate: 81 MN Interval: 180 QRS Duration: 118 QT/QTc: 410/476 ms P-R-T [place]: 51 : 6 : 133 degrees documented in this encounter Nursing Notes * Irene Brock CMA - 02/01/2023 8:38 AM EST Examination Room: 7 Name: [place] Date of : (1990). Reason for Visit: 10M f/u Interim Hospitalization(s): none Problems/Concerns: denies Chest Pain/SOB: denies [facility] Discussed: No [facility] is a way you can talk to your provider online through e-mail. Would you like to sign up? I can activate it for you? DECLINES Patient was instructed to not get up on the exam table until directed and assisted by their provider; patient is to remain seated in the chair/ wheelchair/ exam table for fall prevention and safety reasons. Patient is aware to have assistance to step down off exam table with personnel. Patient voiced full comprehension of instructions. documented in this encounter Plan of Treatment Upcoming Encounters Date Type Department Care Team (Latest Contact Info) Description 02/01/2023 9:50 AM EST Laboratory Laboratory, [facility] [address] [place] [place] [id number] [facility] [address] [place] [place] [address] HTN, goal below 140/90; Dyslipidemia, goal LDL below 130; Prediabetes; Gout of big toe; Sinus tachycardia 04/20/2023 3:00 PM EST Cardiac Studies Cardiac Studies, [facility] [address] [place] [address] 11/09/2023 5:40 PM EDT Office Visit Family Practice [facility] [address] [place] [place] [address] Kike Garcia DO [address] [place] [id number] Pending Results Name Type Priority Associated Diagnoses Date /Time MAGNESIUM Lab Routine Sinus tachycardia HTN, goal below 140/90 02/01/2023 9:11 AM EST TSH WITH FREE T4 IF INDICATED Lab Routine Sinus tachycardia HTN, goal below 140/90 02/01/2023 9:11 AM EST Scheduled Orders Name Type Priority Associated Diagnoses Orde r Schedule MAGNESIUM Lab Routine Sinus tachycardia HTN, goal below 140/90 LVH (left ventricular hypertrophy) Expected: 02/01/2023, Expires: 02/02/2024 TSH WITH FREE T4 IF INDICATED Lab Routine Sinus tachycardia HTN, goal below 140/90 LVH (left ventricular hypertrophy) Expected: 02/01/2023, Expires: 02/02/2024 ECHO, COMPLETE (2D), TRANS-THORACIC Echocardiology Routine Sinus tachycardia HTN, goal below 140/90 LVH (left ventricular hypertrophy) Expected: 02/01/2023, Expires: 02/02/2024 Health Maintenance Due Date Last Done Comments [...] Not on filedocumented as of this encounter Procedures Procedure Name Priority Date/Time Associated Diagnosis Comments MN ECG ROUTINE ECG W/LEAST 12 LDS W/I&R Routine 02/01/2023 8:52 AM EST Sinus tachycardia HTN, goal below 140/90 LVH (left ventricular hypertrophy) documented in this encounter Results * EKG (02/01/2023 8:52 AM EST) 02/01/2023 8:52 AM EST Narrative Procedure Note Dony Sanders MD - 02/01/2023 8:52 AM EST REASON FOR STUDY: yearly recheck CONCLUSIONS: Normal sinus rhythm Left ventricular hypertrophy with secondary QRS widening andrepolarization abnormality Abnormal ECG When compared with ECG of 10-NOV-2021 10:42, No significant change was found Ventricular Rate: 81 Atrial Rate: 81 MN Interval: 180 QRS Duration: 118 QT/QTc: 410/476 ms P-R-T [place]: 51 : 6 : 133 degrees Sunita HUBBARD EKG [facility] documented in this encounter Visit Diagnoses Diagnosis HTN, goal below 140/90- Primary Unspecified essential hypertension LVH (left ventricular hypertrophy) Cardiomegaly Sinus tachycardia Other specified cardiac dysrhythmias HTN, goal below 140/90 Unspecified essential hypertension Dyslipidemia, goal LDL below 130 Other and unspecified hyperlipidemia Prediabetes Other abnormal glucose Gout of big toe Acute gouty arthropathy Sinus tachycardia Other specified cardiac dysrhythmias documented in this encounter Care Teams Event Set Up Specialist Relationship Specialty Start Date End Date Kike Garcia DO [address] [place] [id number] PCP - General Family Medicine 11/10/21 documented as of this encounter"
--- OUTSIDE RECORDS SUMMARY | 2023-02-07 04:12 | External Medical Summary | Summary of Care ---
Author Name Unknown Organization [facility] Address [address] [place] [address] Phone [phone] Care Team Providers Care Financial Quantitative Analyst Name Role Phone Garcia Kike aGston DO Primary Care Provider Reason for Visit * Reason Onset Date Comments Test Results 02/02/2023 Encounter Details Date Type Department Care Team (Late st Contact Info) Description 02/02/2023 Telephone Cardiology, [facility] [address] [facility] [id number] [facility] [address] [facility] [address] Test Results Allergies No known active allergiesdocumented as of this encounter (statuses as of 02/02/2023) Medications Medication Sig Dispensed Refills Start Date [...] as of this encounter (statuses as of 02/02/2023) Active Problems Problem Noted Date Diagnosed Date [...] as of this encounter (statuses as of 02/02/2023) Resolved Problems Problem Noted Date Diagnosed Date Resolved Date OBESITY, PEDS, BMI 99TH PERCENTL OR GREATER 05/07/2009 08/10/2011 Overview: Per Obesity Taxonomy Diarrhea 01/15/2009 02/17/2012 Nausea with vomiting 01/15/2009 012 OBESITY, UNSPECIFIED 08/22/2000 010 Overview: Per Obesity Taxonomy Abnormal weight gain 11/02/1998 012 Behavioral problems 05/08/1997 08/10/19 12 Overview: ICD-10 update of inactive term documented as of this encounter (statuses as of 02/02/2023) Immunizations Name Administration Dates Next Due Hep [...] on file documented as of this encounter Miscellaneous Notes * Telephone Encounter - Rohini Bourgeois LPN - 02/02/2023 3:16 PM EST Attempted to call number listed, no answer, [employer] voice mail outgoing message. No my chart Sent letter. * Telephone Encounter - Rohini Bourgeois LPN - 02/02/2023 3:12 PM EST ----- Message from STEVIE Kay sent at 02/01/2023 3:01 PM EST ----- Mild renal dysfunction likely in the setting of uncontrolled hypertension. Strongly encouraged compliance with antihypertensive regimen. Please have him repeat a BMP prior tofollow up in 4 weeks. Patient was to be scheduled for this follow up at check out, but it does not appear to have been done. Scheduling-- Place him at 3pm on 02/27/2023. * Telephone Encounter - Rohini Bourgeois LPN - 02/02/2023 3:11 PM EST ----- Message from STEVIE Kay sent at 02/01/2023 2:59 PM EST ----- Thyroid function and magnesium level stable. documented in this encounter Plan of Treatment Upcoming Encounters Date Type Department Care Team (Late st Contact Info) Description 02/27/2023 3:00 PM EST Office Visit Cardiology, [facility] [address] [facility] [place] [place] [address] Sunita Reina CRNP [address] [facility] [place] [place] [address] 04/20/2023 3:00 PM EST Cardiac Studies Cardiac Studies, [facility] [address] [place] [place] [address] 11/09/2023 5:40 PM EDT Office Visit Family Practice [facility] [address] [facility] [place] [address] Kike Garcia DO [address] [place] [place] [address] Scheduled Orders Name Type Priority Associated Diagnoses Orde r Schedule BASIC METABOLIC PANEL Lab Routine HTN, goal below 140/90 Expected: 03/05/2023 (Approximate), Expires: 02/03/2024 Health Maintenance Due Date Last Done Comments COVID-19 Vaccine (#1) 1991 Depression Screening 2003 Albumin/Creatinine Ratio 04/17/2009 DTaP,Tdap,and Td Vaccines (7 - Td or Tdap) 05/21/2017 05/22/2007, 01/16/1997, 11/03/1992, Additional history exists Influenza Vaccine (FLU shot) (#1) 2022 GFR 02/02/2024 02/01/2023, 03/17, 11/10/2021, Additional history exists HbA1c 02/02/2024 02/01/2023, 10/15, 05/11/2001, Additional history exists Hepatitis B Completed 04/27/1993, 11/14, 11/03/1992 MENINGOCOCCAL [...] goal below 140/90- Primary Unspecified essential hypertension documented in this encounter Care Teams Financial Quantitative Analyst Relationship Specialty Start Date End Date Kike Garcia DO [address] [place] [id number] PCP - General Family Medicine 11/10/21 documented as of this encounter
--- OUTSIDE RECORDS SUMMARY | 2023-02-07 04:12 | External Medical Summary | Summary of Care ---
Author Name Unknown Organization [facility] Address [address] [facility] [place] [address] Phone [phone] Care Team Providers Care Air Intelligence Specialist Name Role Phone Kike Garcia DO Primary Care Provider Reason for Visit * Reason Comments Return Visit Pt here for 6 mo ret urn, no concerns noted. Encounter Details Date Type Department Care Team Description 11/08/2022 Office Visit Family [facility] [address] [place] [address] Kike Garcia DO [address] [place] [address] Prediabetes*; Gout of big toe; HTN, goal below 140/90; Body mass index (BMI) of 50.0 to 59.9 in adult (HCC); Dyslipidemia, goal LDL below 130; Morbid obesity due to excess calories (HCC) Allergies No known active allergiesdocumented as of this encounter (statuses as of 11/08/2022) Medications Medication Sig Dispensed Refills Start Date [...] the morning. 30 Capsule 1 09/26/2022 Active documented as of this encounter (statuses as of 11/08/2022) Active Problems Problem Noted Date Gout of [...] as of this encounter (statuses as of 11/08/2022) Resolved Problems Problem Noted Date Resolved Date OBESITY, PEDS, BMI 99TH PERCENTL OR GREATER 04/1408/10/2011 Overview: Per Obesity Taxonomy Diarrhea 01/15/2009 02/17/2012 Nausea with vomiting 01/15/2009 08/10/2011 OBESITY, UNSPECIFIED 08/22/2000 05/07/2009 Overview: Per Obesity Taxonomy Abnormal weight gain 11/02/1998 08/10/2011 Behavioral problems 05/08/1997 08/10/2011 Overview: ICD-10 update of inactive term documented as of this encounter (statuses as of 11/08/2022) Immunizations Name Administration Dates Next Due Hep [...] Sign Reading Time Taken Comments Blood Pressure 134/82 11/08/2022 3:01 PM EDT Pulse 104 11/08/2022 3:01 PM EDT Temperature 36.6 C (97.9 F) 11/08/2022 3:01 PM ED T Respiratory Rate 16 11/08/2022 3:01 PM EDT Oxygen Saturation 97% 11/08/2022 3:01 PM EDT Inhaled Oxygen Concentration - - Weight 179.6 kg (396 lb) 11/08/2022 3:01 PM EDT Height - - Body Mass Index 52.25 11/10/2021 11:14 AM EDT documented in this encounter Patient Instructions * Patient Instructions* Kike Garcia, DO - 11/08/2022 3:09 PM EDT BMI (Body Mass Index) is the number obtained by dividing a person's weight in kilograms by his or her height in meters squared. BMI is used in determining obesity. BMI is not used to determine a person's actual percentage of body fat, but it is a good tool to nursing department chairperson weight in terms of what is healthy and unhealthy. It is used to identify adults at increased risk for developing weight related medical problems. Estimated body mass index is 52.25 kg/m as calculated from the following: Height as of 11/10/21: 1.854 m (6' 1"). Weight as of this encounter: 179.6 kg (396 lb). Severe Obesity - BMI 40 kg/m2 and above - Severely obese individuals are at a very high risk for developing: * Heart disease * Stroke * Diabetes * High Blood Pressure * High Cholesterol * GERD (acid reflux) * Sleep Apnea * Osteoarthritis * Fatty Liver Disease * Certain Types of Cancers * Gout * Gall Bladder Disease - Weight loss has been shown to decrease weight related medical problems. - A BMI of 40 kg/m2 or higher decreases lifespan by 10 yrs, compared to those with a normal BMI. - A 12-week weight management text message program is also available. Go to [employer] and seethe message under '[employer] News' for more information and enrollment. Patient is Instructed to: Diet: * Limit total fat intake to no more than 40 grams per day (low fat diet). * Increase fruits and vegetables to 5 servings per day, combined. * Limited starches (breads, pasta, rice, potatoes, corn, cereals) to 4 servings per day. Avoid Calorie Containing Drinks: * No fruit juices, regular sodas or sweetened drinks. * Water is preferred - 64 ounces per day unless advised of a fluid restriction. * Diet sodas and drinks permitted. Keep Honest, Accurate Food logs: * www.[employer] eWater * www.[employer] * If you bite it - write it! Weigh Yourself Weekly: * Morning is best. * Try to do this outside your home. * Have a friend/spouse remind you to weigh yourself, accountability to others helps. Perform 30 minutes of physical activity daily: * Can do all at once or 5 minutes 6 times per day * 8, 000-10,000 steps per day using a pedometer * Make it fun! documented in this encounter Progress Notes * Kike Garcia DO - 11/08/2022 2:59 PM EDT Images from the original note were not included. Assessment and Plan Prediabetes Declines medical intervention educated Gout of big toe Advise allopurinol To help prevent renal issues From elevated uric acid Patient reluctant to add medication HTN, goal below 140/90 Stable today On current therapy Body mass index (BMI) of 50.0 to 59.9 in adult (HCC) Dyslipidemia, goal LDL below 130 Morbid obesity due to excess calories (HCC) Advise weight loss And increased exercise History of Present Illness [place] is a 32 year old male that presents for Return Visit (Pt here for 6 mo return, no concerns noted.) Presents in f/u today Doing ok overall but Primarily sedentary And doesn't sleep at normal hours Likes to read at night Doesn't particularly watch diet Reluctant to do labs today Physical Exam Vitals: 09/26/23 1501 Temp: 36.6 C (97.9 F) Pulse: 104 Resp: 16 SpO2: 97% BP: 134/82 Physical Exam Constitutional: Appearance: Normal appearance. He is obese. HENT: Head: Normocephalic and atraumatic. Eyes: Extraocular Movements: Extraocular movements intact. Pupils: Pupils are equal, round, and reactive to light. Cardiovascular: Rate and Rhythm: Normal rate and regular rhythm. Pulmonary: Effort: Pulmonary effort is normal. Breath sounds: Normal breath sounds. Neurological: General: No focal deficit present. Mental Status: He is alert and oriented to person, place, and time. Psychiatric: Mood and Affect: Mood normal. Behavior: Behavior normal. Wrap-Up Follow-up: Return in about 6 months (around 05/09/2023). | Check-out note: 1 year f/u Return for labs Time: Total time today was 30 minutes excluding any time spent in the performance of separately billed services. Patient counseling on weight management given. documented in this encounter Plan of Treatment Upcoming Encounters Date Type Specialty Care Team Description 02/01/2023 Office Visit Cardiology Sunita Reina CRNP [address] [place] [address] 11/09/2023 Office Visit Family Medicine Kike Garcia DO [address] [place] [address] Health Maintenance Due Date Last Done Comments [...] as of this encounter Visit Diagnoses Diagnosis Prediabetes- Primary Other abnormal glucose Gout of big toe Acute gouty arthropathy HTN, goal below 140/90 Unspecified essential hypertension Body mass index (BMI) of 50.0 to 59.9 in adult (HCC) Dyslipidemia, goal LDL below 130 Other and unspecified hyperlipidemia Morbid obesity due to excess calories (HCC) documented in this encounter Care Teams Air Intelligence Specialist Relationship Specialty Start Date End Date Kike Garcia DO [address] [place] [address] PCP - General Family Medicine 11/10/21 documented as of this encounter
--- OUTSIDE RECORDS SUMMARY | 2023-02-07 04:12 | External Medical Summary ---
Author Name Unknown Address Unknown Organization K01:[facility] - [address] [facility] [address] Laboratory Report Ordering Provider Test Date Status TERESA SAUCEDO 02/01/2023 09:11:33 Final Observation Date Value Abnormality Reference (Units ) Status Magnesium 02/01/2023 09:11:33 2.2 1.5-2.6 (m g/dL) Final Performing Location [facility] - [address] [facility] [address]
--- NOTE | 2023-02-07 04:48 | Emergency Department Note ---
History of Present Illness General Chief complaint: Cardiac Assessment Stated complaint: CHEST TIGHTNESS,SOB,NAUSEA Time Seen by Provider: 02/07/23 04:17 History of Present Illness This is a 32-year-old male with a history of factor V Leiden that presents to the emergency department via private vehicle with complaints of "chest tightness, shortness of breath, nausea". Patient notes that 4 days ago he began with chest discomfort more on the left side, and he noted that it was worse when he tried to lay down for bed. Patient notes worsening pain then tonight between the hours of 11 PM and 3 AM. He was concerned therefore prompting arrival. He denies any known history of blood clot. He does not take any anticoagulants. The patient has a history of hypertension and follows with cardiology at [facility]. Patient notes that on his recent visit his blood pressure was in the 230s systolic. The patient has associated nausea. He denies any fevers, chills or vomiting. No congestion. No hemoptysis. 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 Insomnia disorder [facility] 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 SPECIALIST - NO OFFICIAL DX - PT REPORTS ONLY SLEEPS 3-4 HOURS A NIGHT Morbid obesity Hypertension Factor V Leiden patient tested d/t family history Surgical History History of right knee surgery AUGUST 2019 Family History Other Family history of diabetes mellitus Social History Smoking Status: Never smoker Cigarettes Per Day: 1 -1.5 CAN PER DAY/ADVISED NPO; Second Hand Exposure: No; Do You Dip or Chew Tobacco: Yes; Hx Alcohol Use: Yes Hx Substance Use: No Preferred Language: Mongolian Communication Ability: Effective Visual Impairment: No Limitations 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: No Beliefs That Will Affect Care: None Current Living Situation: Family Current Living Situation Comment: PARENTS AND BROTHER Feels Safe at Home: Yes Assistive Devices: None and Walker Review of Systems A total of 10 systems reviewed and were otherwise negative Physical Exam Vital Signs Vital Signs - 24 hr 02/07/23 04:13 02/07/23 04:36 02/07/23 04:41 Temperature 36.1 C L Temperature Source Temporal Artery Scan Pulse Rate 124 H 112 H Pulse Rate [Apical] 111 H Respiratory Rate 18 16 Respiratory Effort / Characteristics Non-Labored Respiratory Depth Normal Blood Pressure 194/100 H Blood Pressure [Right Arm] 160/119 H Blood Pressure Mean 131 Blood Pressure Mean [Right Arm] 132 Pulse Oximetry 96 96 Oxygen Delivery Method Room Air Room Air Sepsis Recent Fever Within 48 Hours No Sepsis New/Unexplained Change in Mental Status No Sepsis Action Taken by Nursing No Action Required 02/07/23 04:42 02/07/23 06:38 Temperature Temperature Source Pulse Rate 107 H Pulse Rate [Apical] 91 H Respiratory Rate 16 18 Respiratory Effort / Characteristics Respiratory Depth Blood Pressure Blood Pressure [Right Arm] 158/113 H Blood Pressure Mean Blood Pressure Mean [Right Arm] 128 Pulse Oximetry 96 95 Oxygen Delivery Method Room Air Room Air Sepsis Recent Fever Within 48 Hours Sepsis New/Unexplained Change in Mental Status Sepsis Action Taken by Nursing VITAL SIGNS - Vital signs and nursing notes were reviewed. Hypertensive, tachycardic, afebrile GENERAL -32-year-old male appearing his stated age who is in no acute distress. Communicates well with provider and answers questions appropriately. SKIN - Without rashes. No meningeal or petechial rash. HEAD - NC/AT. EYES - PERRL with EOMI bilaterally. Sclera anicteric. EARS - No deformities of external structures noted on gross examination bilaterally. NOSE - Midline and without cyanosis. No epistaxis or purulent drainage noted. MOUTH/OROPHARYNX - Without perioral cyanosis. NECK - No nuchal rigidity. LUNGS - Chest wall symmetric without accessory muscle use, intercostals retractions, or central cyanosis. Normal vesicular breath sounds CTA B/L. No wheezes, rales, or rhonchi appreciated. CARDIAC - RRR with S1/S2. No murmur, rubs, or gallops appreciated. ABDOMEN - Abdominal contour normal without pulsations or visible masses. BS normoactive all four quadrants. No tenderness, palpable masses, hepatosplenomegaly, or ascites noted. EXTREMITIES - No clubbing or peripheral cyanosis. +5/5 strength noted in UE/LE bilaterally. NEUROLOGIC - Cranial nerves II through XII grossly intact. Sensory intact to light touch throughout. PSYCH - A&Ox3 and cooperates fully with examiner. Pt is very pleasant and interacts well with examiner. Course Administered Medications Magnesium Sulfate/Dextrose (Magnesium Sulfate / D5w) 1 gm in 100 mls @ 50 mls/hr IV Q2H ASHTYN Stop: 02/07/23 11:59 Last Admin: 02/07/23 09:05 Dose: 50 mls/hr Documented By: Infusion: 02/07/23 09:05 Dose: Infused Documented By: Admin: 02/07/23 08:04 Dose: 50 mls/hr Documented By: MARLINE Nitroglycerin (Nitroglycerin 2% Ointment 30gm Tube) 0.5 inch EXT Q6H ASHTYN Stop: 03/09/23 07:14 Last Admin: 02/07/23 07:14 Dose: 0.5 inch Documented By: MARLINE Discontinued Medications Aspirin (Aspirin 81 Mg Chew) 324 mg PO NOW STA Stop: 02/07/23 06:12 Last Admin: 02/07/23 06:33 Dose: 324 mg Documented By: BARBARA Fentanyl Citrate (Fentanyl Citrate Pf 100 Mcg/2 Ml Vial) 50 mcg IV NOW STA Stop: 02/07/23 06:16 Last Admin: 02/07/23 06:33 Dose: 50 mcg Documented By: BARBARA Ioversol (Optiray 320 125ml) 125 ml IV ONCE ONE Stop: 02/07/23 05:45 Last Admin: 02/07/23 05:45 Dose: 116 ml Documented By: LISA Potassium Chloride (Potassium Chloride Crtab 20 Meq Tabcr) 20 meq PO NOW STA Stop: 02/07/23 07:57 Last Admin: 02/07/23 08:01 Dose: 20 meq Documented By: MARLINE Medical Decision Making Laboratory Data 02/07/23 04:40 02/07/23 04:40 Lab Results 02/07/23 02/07/23 02/07/23 Range/Units 04:40 04:44 05:24 WBC 11.05 H (4.8-10.8) K/ul RBC 5.47 (4.70-6.10) M/uL Hgb 16.1 (14.0-18.0) g/dl POC Hgb 16.3 (14.0-18.0) g/dl Hct 47.7 (42.0-52.0) % POC Hct 48 (42-52) % MCV 87.2 (80.0-100.0) fL MCH 29.4 (25.0-34.0) pg MCHC 33.8 (32.0-36.0) g/dL RDW Std Deviation 39.6 (36.4-46.3) fL RDW Coeff of Chloe 12.4 (11.5-14.5) % Plt Count 240 (130-400) K/uL MPV 11.3 (9.4-12.4) fL Immature Gran % (Auto) 0.5 % Neut % (Auto) 66.2 % Lymph % (Auto) 23.6 % [place] % (Auto) 7.7 % Eos % (Auto) 1.5 % Baso % (Auto) 0.5 % Neut # (Auto) 7.32 H (1.40-6.50) K/uL Lymph # (Auto) 2.61 (1.20-3.40) K/uL [place] # (Auto) 0.85 H (0.11-0.59) K/uL Eos # (Auto) 0.17 (0.00-0.50) K/uL Baso # (Auto) 0.05 (0.00-0.20) K/uL Immature Gran # (Auto) 0.05 (0.01-0.20) K/uL Platelet Estimate Normal (Normal) PT 10.8 (9.0-12.0) Seconds INR 1.0 (0.9-1.1) APTT 23 (21-31) Seconds PTT Ratio 0.8 POC Sodium 137 (135-144) mmol/L Sodium 137 (136-145) mmol/L POC Potassium 3.3 (3.3-5.0) mmol/L Potassium 3.5 (3.5-5.1) mmol/L POC Chloride 99 L (101-112) mmol/L Chloride 101 (98-107) mmol/L Carbon Dioxide 25 (21-32) mmol/L POC Total CO2 26 (24-31) mmol/L Anion Gap 11 (3-11) POC Anion Gap 18.0 (16-25) mmol/L POC BUN 9 (7-18) mg/dl BUN 11 (6-23) mg/dl Creatinine 1.20 (0.6-1.4) mg/dl POC Creatinine 1.1 (0.6-1.3) mg/dl Est Cr Clr Drug Dosing 134.2 ml/min Est GFR ( Amer) 92.8 ml/min Est GFR (Non-Af Amer) 80.1 ml/min BUN/Creatinine Ratio 9.2 L (10-20) Glucose 155 H (70-99(Fasting)) mg/dl POC Glucose (other) 144 H (70-99) mg/dl Calcium 9.3 (8.6-10.3) mg/dl POC Ioniz Calcium Alejandro 1.12 (1.12-1.32) mmol/l Magnesium 1.6 L (1.7-2.4) mg/dl Total Bilirubin 0.4 (0.2-1.0) mg/dl AST 21 (13-39) U/L ALT 39 (7-52) U/L Alkaline Phosphatase 75 (34-104) U/L Troponin I High Sens 34.0 H (0-20) pg/ml Total Protein 7.4 (6.0-8.3) gm/dl Albumin 4.1 (3.4-5.0) gm/dl Globulin 3.3 (2.5-4.0) gm/dl Albumin/Globulin Ratio 1.2 (0.9-2) Lipase 8 L (11-82) U/L TSH 3.554 (0.300-4.500) uIu/ml Adenovirus (PCR) Not Detected (NotDetected) B. pertussis DNA (PCR) Not Detected (NotDetected) B.parapertussis DNA PCR Not Detected (NotDetected) C. pneumoniae DNA (PCR) Not Detected (NotDetected) Coronavirus OC43 (PCR) Not Detected (NotDetected) Coronavirus HKU1 (PCR) Not Detected (NotDetected) Coronavirus 229E (PCR) Not Detected (NotDetected) SARS-CoV-2 (PCR) Not Detected (NotDetected) Coronavirus NL63 (PCR) Not Detected (NotDetected) Human Metapneumovir PCR Not Detected (NotDetected) Influenza Type A (PCR) Not Detected (NotDetected) Influenza Type B (PCR) Not Detected (NotDetected) M. pneumoniae (PCR) Not Detected (NotDetected) Parainfluenza 1 (PCR) Not Detected (NotDetected) Parainfluenza 2 (PCR) Not Detected (NotDetected) Parainfluenza 3 (PCR) Not Detected (NotDetected) Parainfluenza 4 (PCR) Not Detected (NotDetected) RSV (PCR) Not Detected (NotDetected) Entero/Rhino (PCR) Not Detected (NotDetected) Imaging Data Radiologist's Impression: Chest CTA 02/07/23 04:33 Exam(s): CTA CHEST IV Amt: 116 ML OPTIRAY 320 EXAM: CT Angiography Chest With Intravenous Contrast CLINICAL HISTORY: Reason for exam: dyspnea, chest pain, tachycardia. TECHNIQUE: Axial computed tomographic angiography images of the chest with intravenous contrast. Automated exposure control was utilized for the study. A dose lowering technique was utilized adhering to the principles of ALARA. MIP reconstructed images were created and reviewed. COMPARISON: No relevant prior studies available. FINDINGS: Pulmonary arteries: Unremarkable. No pulmonary embolism. Aorta: No acute findings. No thoracic aortic aneurysm. Lungs: Unremarkable. No mass. No consolidation. Pleural space: Unremarkable. No significant effusion. No pneumothorax. Heart: Unremarkable. No cardiomegaly. No significant pericardial effusion. No evidence of RV dysfunction. Bones/joints: No acute fracture. No dislocation. Soft tissues: Unremarkable. Lymph nodes: Unremarkable. No enlarged lymph nodes. IMPRESSION: No evidence of pulmonary emboli or acute cardiopulmonary process. Electronically signed by: Surjit Dudley MD 02/07/23 06:06 AM MDM Narrative Patient was seen and evaluated as above in room B04. Review was performed of nursing notes and vital signs. I did review pertinent previous visits and patient history. After obtaining a thorough history and physical examination the above work up was performed. Patient presents to us today for evaluation of chest tightness, shortness of breath and nausea. He has had symptoms for the past 4 days. On arrival the patient is tachycardic and hypertensive. He is not hypoxic. He is afebrile. Options of care were discussed with the patient. IV access was established. Labs were drawn. EKG was performed. This does reveal sinus tachycardia at a rate of 121 bpm. QTc 460. QRS 106. There are ST depression in the lateral leads as compared to EKG of August 15, 2019. Patient notes very minimal discomfort at this time. Blood pressure on arrival was quite elevated at 194/110. However, about 30 minutes later without intervention systolic dropped to 160/119. Heart rate also dropped under 100 and he was no longer tachycardic. Will hold off on nitro but will consider and trend blood pressure. Aspirin was ordered as well as IV fentanyl. CTA of the chest returned as negative for PE. Labs reveal mild leukocytosis 11.05. No anemia. No emergent metabolic disturbance. Coags are normal. Hyperglycemia noted at 155. Mild hypomagnesemia at 1.6. Troponin is mildly elevated here today at 34 with repeat ordered at the 2-hour gerhard. BioFire panel was negative. The patient's elevated troponin EKG changes may be multifactorial. This may be related to elevated blood pressure versus underlying cardiac etiology. At this time I do believe that further evaluation and management in the inpatient setting is warranted. Case discussed with the hospitalist service. Please refer to further documentation regarding his stay. GCS: 15 In the evaluation and treatment of this patient, the following differential diagnoses were considered: MN, ASC, Dysrhythmia, Angina, Mediastinitis, GERD, Esophagitis, PE, Pneumonia, Bronchitis, Costochondritis, Rib Fracture, Zoster. Impression & Plan Chest pain Discharge Plan Visit Data Chief Complaint: Cardiac Assessment Stated Complaint: CHEST TIGHTNESS,SOB,NAUSEA ED Provider: Nancy Duron ED Midlevel Provider: Eduar Green Discharge Problem: Chest pain Patient Disposition: Home - Self-Care Condition: Good
[2023-02-07 05:23] LABS: Albumin Globulin Ratio 1.2 (0.9-2); Albumin Level 4.1 gm/dl (3.4-5.0); BUN Creatinine Ratio 9.2 (10-20); Bilirubin,Total 0.4 mg/dl (0.2-1.0); Calcium 9.3 mg/dl (8.6-10.3); Creatinine Clr Calc Pharmacy 134.2 ml/min; Est GFR (African American) 92.8 ml/min; Est GFR (Non-African American) 80.1 ml/min; Globulin 3.3 gm/dl (2.5-4.0); Hematocrit (blood only) 47.7 % (42.0-52.0); Hemoglobin 16.1 g/dl (14.0-18.0); Magnesium 1.6 mg/dl (1.7-2.4); Mean Corpuscular Hemoglobin 29.4 pg (25.0-34.0); Mean Corpuscular Hgb Conc 33.8 g/dL (32.0-36.0); Mean Corpuscular Volume 87.2 fL (80.0-100.0); Potassium 3.5 mmol/L (3.5-5.1); RDW Coefficient of Variation 12.4 % (11.5-14.5); RDW Standard Deviation 39.6 fL (36.4-46.3); Red Blood Count 5.47 M/uL (4.70-6.10); Total Protein 7.4 gm/dl (6.0-8.3); White Blood Count 11.05 K/ul (4.8-10.8)
[2023-02-07 05:30] LABS: Basophils # (auto) 0.05 K/uL (0.00-0.20); Basophils % (auto) 0.5 %; Eosinophils # (auto) 0.17 K/uL (0.00-0.50); Eosinophils % (auto) 1.5 %; Immature Granulocytes # (auto) 0.05 K/uL (0.01-0.20); Immature Granulocytes % (auto) 0.5 %; Lymphocytes # (auto) 2.61 K/uL (1.20-3.40); Lymphocytes % (auto) 23.6 %; Mean Platelet Volume 11.3 fL (9.4-12.4); Monocytes # (auto) 0.85 K/uL (0.11-0.59); Monocytes % (auto) 7.7 %; Neutrophils # (auto) 7.32 K/uL (1.40-6.50); Neutrophils % (auto) 66.2 %; Platelet Count 240 K/uL (130-400); Platelet Estimate Normal (Normal)
[2023-02-07 05:32] LABS: Partial Thromboplastin Ratio 0.8; Partial Thromboplastin Time 23 Seconds (21-31); Prothrombin Time 10.8 Seconds (9.0-12.0)
[2023-02-07 05:36] LABS: iSTAT Creatinine 1.1 mg/dl (0.6-1.3); iSTAT Hemoglobin 16.3 g/dl (14.0-18.0); iSTAT Ionized Calcium 1.12 mmol/l (1.12-1.32); iSTAT Potassium 3.3 mmol/L (3.3-5.0)
[2023-02-07 05:38] LABS: Thyroid Stimulating Hormone 3.554 uIu/ml (0.300-4.500)
[2023-02-07] MEDS ORDERED: OPTIRAY 320 125ml IV ONE (05:44)
[2023-02-07 06:04] LABS: Adenovirus PCR Not Detected (NotDetected); Bordetella parapertussis PCR Not Detected (NotDetected); Bordetella pertussis PCR Not Detected (NotDetected); Chlamydia pneumoniae PCR Not Detected (NotDetected); Coronavirus 229E PCR Not Detected (NotDetected); Coronavirus CoV-2 (COVID19)PCR Not Detected (NotDetected); Coronavirus HKU1 PCR Not Detected (NotDetected); Coronavirus NL63 PCR Not Detected (NotDetected); Coronavirus OC43PCR Not Detected (NotDetected); Human Metapneumovirus PCR Not Detected (NotDetected); Influenza A PCR Not Detected (NotDetected); Influenza B PCR Not Detected (NotDetected); Mycoplasma pneumoniae PCR Not Detected (NotDetected); Parainfluenza Virus 1 PCR Not Detected (NotDetected); Parainfluenza Virus 2 PCR Not Detected (NotDetected); Parainfluenza Virus 3 PCR Not Detected (NotDetected); Parainfluenza Virus 4 PCR Not Detected (NotDetected); Respiratory Syncytial VirusPCR Not Detected (NotDetected); Rhinovirus/Enterovirus PCR Not Detected (NotDetected)
--- NOTE | 2023-02-07 06:07 | CT Scan Report ---
Exam(s): CTA CHEST IV Amt: 116 ML OPTIRAY 320 EXAM: CT Angiography Chest With Intravenous Contrast CLINICAL HISTORY: Reason for exam: dyspnea, chest pain, tachycardia. TECHNIQUE: Axial computed tomographic angiography images of the chest with intravenous contrast. Automated exposure control was utilized for the study. A dose lowering technique was utilized adhering to the principles of ALARA. MIP reconstructed images were created and reviewed. COMPARISON: No relevant prior studies available. FINDINGS: Pulmonary arteries: Unremarkable. No pulmonary embolism. Aorta: No acute findings. No thoracic aortic aneurysm. Lungs: Unremarkable. No mass. No consolidation. Pleural space: Unremarkable. No significant effusion. No pneumothorax. Heart: Unremarkable. No cardiomegaly. No significant pericardial effusion. No evidence of RV dysfunction. Bones/joints: No acute fracture. No dislocation. Soft tissues: Unremarkable. Lymph nodes: Unremarkable. No enlarged lymph nodes. IMPRESSION: No evidence of pulmonary emboli or acute cardiopulmonary process. Electronically signed by: Surjit Dudley MD 02/07/23 06:06 AM
[2023-02-07] MEDS ORDERED: ASPIRIN 81 MG CHEW PO STA (06:11)
[2023-02-07] MEDS ORDERED: fentaNYL citrate PF 100 MCG/2 ML VIAL IV STA (06:15)
[2023-02-07] MEDS: NITROGLYCERIN 2% OINTMENT 30GM TUBE EXT SCH ×3 (07:14→21:28)
[2023-02-07] MEDS ORDERED: POTASSIUM CHLORIDE CRTAB 20 MEQ TABCR PO STA (07:56)
--- NOTE | 2023-02-07 07:56 | History & Physical Report ---
Date of Service February 07, 2023 Assessment & Plan (1) Chest pain: Plan: 32-year-old male past medical history significant for prediabetes, history of gout, history of hypertensive urgency, morbid obesity, primary hypercoagulable state factor V, and ambulatory dysfunction presents with left-sided chest pressure also found to have hypertensive urgency. Having this pain for last few days but last night the pain got worse in the left side of the chest 4/10 in severity also with some nausea and fatigue. Denies any headache. No dizziness. No shortness of breath or cough. No fevers. No abdominal pain. Normal bowel and bladder movements. Patient recently saw cardiology on February 01 his blood pressure was 224/120. Seems he was noncompliant with medications .Was recommended to come to the ER for workup but patient declined. During that visit he declined any chest pain. He was prescribed losartan/hydrochlorothiazide 100/25 milligram daily and also amlodipine 2.5 mg daily. Patient states he is taking those medications. Chest pain Initial troponin 30. If repeat troponins going up we will start on IV heparin Placed on Nitropaste Will follow echo keep him n.p.o. Cardiology consult Hypertensive urgency Seems noncompliant with medications continues home medications of losartan/hydrochlorothiazide and amlodipine Placed on Nitropaste Will monitor cardiology consulted Prediabetes Will follow HbA1c levels Morbid obesity Needs counseling May need sleep study Can do nocturnal pulse ox study while in the hospital Hypercoagulable state factor V CTA chest unremarkable DVT prophylaxis Placed on Lovenox Disposition Telemetry floor Full code History of Present Illness Chief Complaint: Chest pain and hypertensive urgency Primary Care Provider: Kike Garcia DO 32-year-old male past medical history significant for prediabetes, history of gout, history of hypertensive urgency, morbid obesity, primary hypercoagulable state factor V, and ambulatory dysfunction presents with left-sided chest pressure also found to have hypertensive urgency. Having this pain for last few days but last night the pain got worse in the left side of the chest 4/10 in severity also with some nausea and fatigue. Denies any headache. No dizziness. No shortness of breath or cough. No fevers. No abdominal pain. Normal bowel and bladder movements. Patient recently saw cardiology on February 01 his blood pressure was 224/120. Seems he was noncompliant with medications .Was recommended to come to the ER for workup but patient declined. During that visit he declined any chest pain. He was prescribed losartan/hydrochlorothiazide 100/25 milligram daily and also amlodipine 2.5 mg daily. Patient states he is taking those medications. Past medical history. As mentioned above Past surgical history. None as per [facility] Social history.chews tobacco. Alcohol occasionally. No drug use. Family history. Father has allergies. Mother has allergies. Asthma. Thyroid disorder. Factor V Leiden. 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 Insomnia disorder 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 - PT REPORTS ONLY SLEEPS 3-4 HOURS A NIGHT Morbid obesity Hypertension Factor V Leiden patient tested d/t family history Surgical History History of right knee surgery AUGUST 2019 Family History Other Family history of diabetes mellitus Social History Smoking Status: Never smoker Cigarettes Per Day: 1 -1.5 CAN PER DAY/ADVISED NPO; Second Hand Exposure: No; Do You Dip or Chew Tobacco: Yes; Hx Alcohol Use: No Hx Substance Use: No Preferred Language: Bangladeshi Communication Ability: Effective Visual Impairment: No Limitations Director Decision Support Required: No Beliefs That Will Affect Care: None Current Living Situation: Family Current Living Situation Comment: PARENTS AND BROTHER Feels Safe at Home: Yes Assistive Devices: Walker Review of Systems Review of Systems: All systems reviewed & are unremarkable except as noted in HPI & below Physical Exam Physical Exam: General- Not in distress. Head- atraumatic Eyes- PERRL. ENT- oropharynx clear Neck- supple, no JVD. Lungs- clear to auscultation no wheezing or crackles. Heart- regular rhythm; no murmur, no gallop. Abdomen- normal bowel sounds, soft, nontender, no distension. Extremities- no pretibial edema, no erythema seen. Neuro- alert, oriented x 3; PERRL, no facial palsy; no dysarthria; moves extremities. Skin- warm & dry Results & Data Results & Data Vital Signs (Past 12 Hours) Vital Signs Temp Pulse Pulse Resp BP BP Pulse Ox 02/07/23 07:43 02/07/23 06:38 91 H 18 158/113 H 95 02/07/23 04:42 107 H 16 96 02/07/23 04:41 111 H 16 160/119 H 96 02/07/23 04:36 112 H 02/07/23 04:13 36.1 C L 124 H 18 194/100 H 96 O2 Del Method 02/07/23 07:43 Room Air 02/07/23 06:38 Room Air 02/07/23 04:42 Room Air 02/07/23 04:41 Room Air 02/07/23 04:36 02/07/23 04:13 Room Air Diagnostic Findings Laboratory Results WBC 11.05 K/ul (4.8-10.8) H 02/07/23 04:40 RBC 5.47 M/uL (4.70-6.10) 02/07/23 04:40 Hgb 16.1 g/dl (14.0-18.0) 02/07/23 04:40 POC Hgb 16.3 g/dl (14.0-18.0) 02/07/23 05:24 Hct 47.7 % (42.0-52.0) 02/07/23 04:40 POC Hct 48 % (42-52) 02/07/23 05:24 MCV 87.2 fL (80.0-100.0) 02/07/23 04:40 MCH 29.4 pg (25.0-34.0) 02/07/23 04:40 MCHC 33.8 g/dL (32.0-36.0) 02/07/23 04:40 RDW Std Deviation 39.6 fL (36.4-46.3) 02/07/23 04:40 RDW Coeff of Chloe 12.4 % (11.5-14.5) 02/07/23 04:40 Plt Count 240 K/uL (130-400) 02/07/23 04:40 MPV 11.3 fL (9.4-12.4) 02/07/23 04:40 Immature Gran % (Auto) 0.5 % 02/07/23 04:40 Neut % (Auto) 66.2 % 02/07/23 04:40 Lymph % (Auto) 23.6 % 02/07/23 04:40 [place] % (Auto) 7.7 % 02/07/23 04:40 Eos % (Auto) 1.5 % 02/07/23 04:40 Baso % (Auto) 0.5 % 02/07/23 04:40 Neut # (Auto) 7.32 K/uL (1.40-6.50) H 02/07/23 04:40 Lymph # (Auto) 2.61 K/uL (1.20-3.40) 02/07/23 04:40 [place] # (Auto) 0.85 K/uL (0.11-0.59) H 02/07/23 04:40 Eos # (Auto) 0.17 K/uL (0.00-0.50) 02/07/23 04:40 Baso # (Auto) 0.05 K/uL (0.00-0.20) 02/07/23 04:40 Immature Gran # (Auto) 0.05 K/uL (0.01-0.20) 02/07/23 04:40 Platelet Estimate Normal (Normal) 02/07/23 04:40 PT 10.8 Seconds (9.0-12.0) 02/07/23 04:40 INR 1.0 (0.9-1.1) 02/07/23 04:40 APTT 23 Seconds (21-31) 02/07/23 04:40 PTT Ratio 0.8 02/07/23 04:40 POC Sodium 137 mmol/L (135-144) 02/07/23 05:24 Sodium 137 mmol/L (136-145) 02/07/23 04:40 POC Potassium 3.3 mmol/L (3.3-5.0) 02/07/23 05:24 Potassium 3.5 mmol/L (3.5-5.1) 02/07/23 04:40 POC Chloride 99 mmol/L (101-112) L 02/07/23 05:24 Chloride 101 mmol/L (98-107) 02/07/23 04:40 Carbon Dioxide 25 mmol/L (21-32) 02/07/23 04:40 POC Total CO2 26 mmol/L (24-31) 02/07/23 05:24 Anion Gap 11 (3-11) 02/07/23 04:40 POC Anion Gap 18.0 mmol/L (16-25) 02/07/23 05:24 POC BUN 9 mg/dl (7-18) 02/07/23 05:24 BUN 11 mg/dl (6-23) 02/07/23 04:40 Creatinine 1.20 mg/dl (0.6-1.4) 02/07/23 04:40 POC Creatinine 1.1 mg/dl (0.6-1.3) 02/07/23 05:24 Est Cr Clr Drug Dosing 134.2 ml/min 02/07/23 04:40 Est GFR ( Amer) 92.8 ml/min 02/07/23 04:40 Est GFR (Non-Af Amer) 80.1 ml/min 02/07/23 04:40 BUN/Creatinine Ratio 9.2 (10-20) L 02/07/23 04:40 Glucose 155 mg/dl (70-99(Fasting)) H 02/07/23 04:40 POC Glucose (other) 144 mg/dl (70-99) H 02/07/23 05:24 Calcium 9.3 mg/dl (8.6-10.3) 02/07/23 04:40 POC Ioniz Calcium Alejandro 1.12 mmol/l (1.12-1.32) 02/07/23 05:24 Magnesium 1.6 mg/dl (1.7-2.4) L 02/07/23 04:40 Total Bilirubin 0.4 mg/dl (0.2-1.0) 02/07/23 04:40 AST 21 U/L (13-39) 02/07/23 04:40 ALT 39 U/L (7-52) 02/07/23 04:40 Alkaline Phosphatase 75 U/L (34-104) 02/07/23 04:40 Troponin I High Sens 34.0 pg/ml (0-20) H 02/07/23 04:40 Total Protein 7.4 gm/dl (6.0-8.3) 02/07/23 04:40 Albumin 4.1 gm/dl (3.4-5.0) 02/07/23 04:40 Globulin 3.3 gm/dl (2.5-4.0) 02/07/23 04:40 Albumin/Globulin Ratio 1.2 (0.9-2) 02/07/23 04:40 Lipase 8 U/L (11-82) L 02/07/23 04:40 TSH 3.554 uIu/ml (0.300-4.500) 02/07/23 04:40 Adenovirus (PCR) Not Detected (NotDetected) 02/07/23 04:44 B. pertussis DNA (PCR) Not Detected (NotDetected) 02/07/23 04:44 B.parapertussis DNA PCR Not Detected (NotDetected) 02/07/23 04:44 C. pneumoniae DNA (PCR) Not Detected (NotDetected) 02/07/23 04:44 Coronavirus OC43 (PCR) Not Detected (NotDetected) 02/07/23 04:44 Coronavirus HKU1 (PCR) Not Detected (NotDetected) 02/07/23 04:44 Coronavirus 229E (PCR) Not Detected (NotDetected) 02/07/23 04:44 SARS-CoV-2 (PCR) Not Detected (NotDetected) 02/07/23 04:44 Coronavirus NL63 (PCR) Not Detected (NotDetected) 02/07/23 04:44 Human Metapneumovir PCR Not Detected (NotDetected) 02/07/23 04:44 Influenza Type A (PCR) Not Detected (NotDetected) 02/07/23 04:44 Influenza Type B (PCR) Not Detected (NotDetected) 02/07/23 04:44 M. pneumoniae (PCR) Not Detected (NotDetected) 02/07/23 04:44 Parainfluenza 1 (PCR) Not Detected (NotDetected) 02/07/23 04:44 Parainfluenza 2 (PCR) Not Detected (NotDetected) 02/07/23 04:44 Parainfluenza 3 (PCR) Not Detected (NotDetected) 02/07/23 04:44 Parainfluenza 4 (PCR) Not Detected (NotDetected) 02/07/23 04:44 RSV (PCR) Not Detected (NotDetected) 02/07/23 04:44 Entero/Rhino (PCR) Not Detected (NotDetected) 02/07/23 04:44 Impressions Chest CTA 02/07/23 04:33 Exam(s): CTA CHEST IV Amt: 116 ML OPTIRAY 320 EXAM: CT Angiography Chest With Intravenous Contrast CLINICAL HISTORY: Reason for exam: dyspnea, chest pain, tachycardia. TECHNIQUE: Axial computed tomographic angiography images of the chest with intravenous contrast. Automated exposure control was utilized for the study. A dose lowering technique was utilized adhering to the principles of ALARA. MIP reconstructed images were created and reviewed. COMPARISON: No relevant prior studies available. FINDINGS: Pulmonary arteries: Unremarkable. No pulmonary embolism. Aorta: No acute findings. No thoracic aortic aneurysm. Lungs: Unremarkable. No mass. No consolidation. Pleural space: Unremarkable. No significant effusion. No pneumothorax. Heart: Unremarkable. No cardiomegaly. No significant pericardial effusion. No evidence of RV dysfunction. Bones/joints: No acute fracture. No dislocation. Soft tissues: Unremarkable. Lymph nodes: Unremarkable. No enlarged lymph nodes. IMPRESSION: No evidence of pulmonary emboli or acute cardiopulmonary process. Electronically signed by: Surjit Dudley MD 02/07/23 06:06 AM ECG Additional Comments: ECG. Sinus tachycardia rate of 121. Left ventricular hypertrophy. Code Status & VTE Plan VTE Prophylaxis Plan VTE Prophylaxis will be ordered: Yes
[2023-02-07] MEDS: MAGNESIUM SULFATE / D5W 1 GM/100 ML BAG IV SCH ×2 (08:04→09:05)
[2023-02-07] MEDS ORDERED: ACETAMINOPHEN 325 MG TAB PO PRN (09:20)
[2023-02-07] MEDS ORDERED: POLYETHYLENE (MIRALAX) 17 GM PACK PO PRN (09:20)
[2023-02-07] MEDS ORDERED: NITROGLYCERIN SL 0.4 MG/TAB TAB SL PRN (09:20)
--- NOTE | 2023-02-07 10:57 | Cardiology Consultation ---
Date of Consultation February 07, 2023 Assessment & Plan (1) Chest pain at rest: (2) Hypertensive urgency: (3) Elevated troponin: (4) Hyperkinetic heart disease: Plan 32-year-old male presenting to the [facility] ER with four days of resting chest tightness associated with nausea, fatigue, sensation of feeling the heart pounding hard and fast. Initial EKG with sinus tachycardia with subtle ST depression. High-sensitivity troponin mildly elevated at 34.0 then 40.4 pg/mL. Resting echocardiography with mildly reduced LV systolic function, EF 45 to 50%, with moderate concentric LVH, mild global hypokinesis. Agree with Nitropaste Continue losartan, HCTZ, and amlodipine Add beta-tamir therapy in the form of carvedilol 3.125 mg twice per day Add aspirin and statin therapy Add PPI therapy with Protonix 40 mg/day Supplement potassium and magnesium Need for further cardiac evaluation discussed with patient and father. NPO pending evaluation by Dr. Carney Supervising Physician Co-Signing Physician Notes 32-year-old male present to the emergency department chest discomfort. Reports recurrent chest discomfort over the past 4 days. Steadily worsening last evening prompting ER evaluation. Describes a tightness and heaviness. States "feeling someone was sitting on the left side of my chest". Mild associated shortness of breath. No orthopnea or PND. Discomfort also associated with josselyn sea. No vomiting. Currently pain-free. Telemetry reveals sinus rhythm. PE: Hypertensive. General: NAD, obese, awake alert orient x 3. Heart: Regular rhythm, normal S1-S2. No murmur. Lungs: Clear bilateral, no rales, rhonchi, wheeze. Extremities: No edema. A/P: Agree with above AP history, physical exam, assessment and plan. Further ischemic evaluation recommended. Discussed pharmacologic stress testing versus proceeding with cardiac catheterization. With abnormal ECG, elevated troponin, and mild LV systolic dysfunction, patient agreeable to cardiac catheterization. Continue losartan, hydrochlorothiazide, and amlodipine. Agree with addition of carvedilol, aspirin, and statin therapy. History of Present Illness Reason for Consultation: Chest pain. Hypertensive urgency Requesting Physician: Dr. Murphy Attending Physician: Dr. Calabrese History of Present Illness Mr. West Cai is a 32-year-old male who presented to the emergency room early this morning via private vehicle with complaints of tightness in the chest that started 4 days ago. Symptoms occur primarily in the evenings when lying down and more recently have been associated with nausea, increased fatigue, and feeling the heart pounding hard and fast in the chest. Blood pressure on presentation to the ER was 194/100. EKG revealed sinus tachycardia 121 bpm with LVH. High-sensitivity troponin 34.0 then 40.4 pg/mL. Resting echocardiography revealed mildly reduced LV systolic function, EF 45 to 50%, with moderate concentric LVH, mild global hypokinesis, mild aortic regurgitation, abnormal LV relaxation. Imaging included a chest CTA showing no evidence of pulmonary emboli or acute cardiopulmonary process. Received IV fentanyl and Nitropaste with improvement. Father at bedside. Past Medical and Surgical History: Prediabetes Hypertension, hypertensive heart disease History of hypertensive urgency Obesity Gout Factor V Leiden Ambulatory dysfunction secondary to right knee incident in 2019, bowling accident History of medication noncompliance Family History: Father without cardiac issues, recently undergoing stress testing. Mother with hypertension and? Diabetes which runs on her side of the family. Paternal grand mother with CHF. Paternal uncle with CHF. Social History: No cigarettes. Smokeless tobacco user. History of alcohol use, abstaining of late. No illegal drug use. Unable to work since sustaining right knee injury while bowling in 2019. Unable to work for his fathers [employer] business. 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 Insomnia disorder [facility] 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 - PT REPORTS ONLY SLEEPS 3-4 HOURS A NIGHT Morbid obesity Hypertension Factor V Leiden patient tested d/t family history Surgical History History of right knee surgery AUGUST 2019 Family History Other Family history of diabetes mellitus Social History Smoking Status: Never smoker Cigarettes Per Day: 1 -1.5 CAN PER DAY/ADVISED NPO; Second Hand Exposure: No; Do You Dip or Chew Tobacco: Yes; Hx Alcohol Use: Yes Hx Substance Use: No Preferred Language: Japanese Communication Ability: Effective Visual Impairment: No Limitations 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 Physical Exam Physical Exam: General: A&Ox3. NAD. HENT: Normocephalic. Atraumatic. Eyes: PER. Conjunctiva pink, sclera clear. Neck: No carotid bruits. No JVD. No HJR. Heart: Regular at 86 bpm. No murmur. No rub. No gallop. PMI is nondisplaced. Lungs: Clear to auscultation. Abdomen: Obese. +BS. Soft. Nontender. No masses or organomegaly. Extremities: No clubbing, cyanosis, or edema. Limited neurological examination is without focal deficits. Pulses: Posterior tibial=2/4. Results & Data Vital Signs (Past 12 Hours) Vital Signs Temp Pulse Pulse Resp BP BP Pulse Ox 02/07/23 09:36 02/07/23 09:36 82 20 145/91 H 97 02/07/23 08:48 77 02/07/23 08:44 78 17 155/112 H 98 02/07/23 08:10 76 18 155/112 H 97 02/07/23 07:43 02/07/23 06:38 91 H 18 158/113 H 95 02/07/23 04:42 107 H 16 96 02/07/23 04:41 111 H 16 160/119 H 96 02/07/23 04:36 112 H 02/07/23 04:13 36.1 C L 124 H 18 194/100 H 96 Pulse Ox O2 Del Method O2 Del Method 02/07/23 09:36 97 Room Air 02/07/23 09:36 Room Air 02/07/23 08:48 02/07/23 08:44 Room Air 02/07/23 08:10 Room Air 02/07/23 07:43 Room Air 02/07/23 06:38 Room Air 02/07/23 04:42 Room Air 02/07/23 04:41 Room Air 02/07/23 04:36 02/07/23 04:13 Room Air Laboratory Results Cardiac Enzymes 02/07/23 02/07/23 Range/Units 04:40 08:05 AST 21 (13-39) U/L Troponin I High Sens 34.0 H 40.4 H (0-20) pg/ml Coagulation 02/07/23 Range/Units 04:40 PT 10.8 (9.0-12.0) Seconds APTT 23 (21-31) Seconds CBC 02/07/23 Range/Units 04:40 WBC 11.05 H (4.8-10.8) K/ul RBC 5.47 (4.70-6.10) M/uL Hgb 16.1 (14.0-18.0) g/dl Hct 47.7 (42.0-52.0) % Plt Count 240 (130-400) K/uL Neut # (Auto) 7.32 H (1.40-6.50) K/uL Lymph # (Auto) 2.61 (1.20-3.40) K/uL [place] # (Auto) 0.85 H (0.11-0.59) K/uL Eos # (Auto) 0.17 (0.00-0.50) K/uL Baso # (Auto) 0.05 (0.00-0.20) K/uL Comprehensive Metabolic Panel 02/07/23 Range/Units 04:40 Sodium 137 (136-145) mmol/L Potassium 3.5 (3.5-5.1) mmol/L Chloride 101 (98-107) mmol/L Carbon Dioxide 25 (21-32) mmol/L BUN 11 (6-23) mg/dl Creatinine 1.20 (0.6-1.4) mg/dl Glucose 155 H (70-99(Fasting)) mg/dl Calcium 9.3 (8.6-10.3) mg/dl AST 21 (13-39) U/L ALT 39 (7-52) U/L Alkaline Phosphatase 75 (34-104) U/L Total Protein 7.4 (6.0-8.3) gm/dl Albumin 4.1 (3.4-5.0) gm/dl Intake and Output 02/06/23 02/07/23 02/07/23 22:59 06:59 14:59 Intake Total 50.833 / 50.833 Balance 50.833 / 50.833 Intake: IV 50.833 / 50.833 Magnesium Sulfate / D5w 1 gm In 50.833 / 50.833 100 ml @ 50 mls/hr IV Q2H [facility] Rx#:[id number] Other: Weight 146 kg 146 kg Weight Measurement Method Chair Scale Chair Scale Patient Weight 02/08/23 06:59 Weight 146 kg
[2023-02-07] MEDS: amLODIPine BESYLATE 5 MG TAB PO SCH (11:08)
[2023-02-07] MEDS: ENOXAPARIN INJ 40 MG/0.4 ML SYR SQ SCH ×2 (11:08→21:29)
[2023-02-07] MEDS: LOSARTAN/HCTZ 50/12.5MG TAB PO SCH (11:08)
--- NOTE | 2023-02-07 12:00 | Electrocardiogram Report ---
Test Reason : Blood Pressure : / mmHG Vent. Rate : 121 BPM Atrial Rate : 121 BPM P-R Int : 160 ms QRS Dur : 106 ms QT Int : 324 ms P-R-T Axes : 042 -05 127 degrees QTc Int : 460 ms Sinus tachycardia Left ventricular hypertrophy with repolarization abnormality Abnormal ECG When compared with ECG of 15-AUG-2019 12:10, ST now depressed in Lateral leads Confirmed by Eugene Adames ([id number]) on 02/07/2023 12:00:30 PM Referred By: REFERRED SELF Confirmed By:Vladimir Adames
[2023-02-07] MEDS: ATORVASTATIN 40 MG TAB PO SCH (13:54)
[2023-02-07] MEDS: PANTOprazole 40 MG TAB PO SCH (13:55)
--- NOTE | 2023-02-07 14:13 | Communication Note ---
Date of Service: February 07, 2023 Patient seen and examined Currently chest pain free Discussed with Meat Products Demonstrator. Considering description of chest pain, abnormal EKG and mildly reduced EF 45-50% on TTE; Cardiology will take patient for cardiac cath today. Optimize BP control Will follow up cath results and Cardiology recs Other plans as detailed in H&P this AM
[2023-02-07] MEDS ORDERED: fentaNYL citrate PF 100 MCG/2 ML VIAL ONE (14:23)
[2023-02-07] MEDS ORDERED: MIDAZOLAM HCL 1 MG/ML 2ML VIAL ONE (14:23)
[2023-02-07] MEDS ORDERED: niCARdipine HCL INJ 2.5 MG/ML 10 ML AMP ONE (14:23)
[2023-02-07] MEDS ORDERED: HEPARIN (PORCINE) 1000 UNIT/ML 10 ML (CATH LAB USE ONLY) ONE (14:23)
[2023-02-07] MEDS ORDERED: NITROGLYCERIN/D5W 100MCG/ML 20ML SYR ONE (14:25)
--- NOTE | 2023-02-07 14:42 | Pre Anesthesia Assessment ---
Date of Service February 07, 2023 Pre Sedation Assessment Vital Signs Temp Pulse Pulse Resp BP BP Pulse Ox 02/07/23 14:17 92 H 20 182/136 H 97 02/07/23 11:17 96 02/07/23 11:17 37.1 C 84 20 110/74 96 02/07/23 09:36 02/07/23 09:36 82 20 145/91 H 97 02/07/23 08:48 77 02/07/23 08:44 78 17 155/112 H 98 02/07/23 08:10 76 18 155/112 H 97 02/07/23 07:43 02/07/23 06:38 91 H 18 158/113 H 95 02/07/23 04:42 107 H 16 96 02/07/23 04:41 111 H 16 160/119 H 96 02/07/23 04:36 112 H 02/07/23 04:13 36.1 C L 124 H 18 194/100 H 96 Pulse Ox O2 Del Method O2 Del Method 02/07/23 14:17 Room Air 02/07/23 11:17 Room Air 02/07/23 11:17 Room Air 02/07/23 09:36 97 Room Air 02/07/23 09:36 Room Air 02/07/23 08:48 02/07/23 08:44 Room Air 02/07/23 08:10 Room Air 02/07/23 07:43 Room Air 02/07/23 06:38 Room Air 02/07/23 04:42 Room Air 02/07/23 04:41 Room Air 02/07/23 04:36 02/07/23 04:13 Room Air Cardiovascular + regular rate and + regular rhythm + S1 normal and + S2 normal; no murmur + radial pulses present; no JVD no edema Respiratory + respiratory effort normal; no respiratory distress, no labored breathing and no retractions no crackles, no rales, no rhonchi and no wheezes Pre-Sedation Airway Assessment Smoking Status: Never smoker Hx Sleep Apnea: No Short, Thick Neck: Yes Thyromental Distance: < 3.5 Finger Breadths Oral Cavity: + WNL Mallampati Class: III ASA: ASA3 NPO Status Date of Last Intake of Fluids: 02/06/23 Time of Last Intake of Fluids: 17:30 Date of Last Intake of Solid Food: 02/06/23 Time of Last Intake of Solid Foods: 17:30 Procedure Planning Contraindications for Sedation: none Current Medications Reviewed: Yes Notes The planned sedation has been discussed with the patient. Informed Consent was obtained. I have identified the patient, determined the appropriateness of sedation and have assessed the patient immediately prior to the procedure. All medicine(s) and interventions are by my order.
--- NOTE | 2023-02-07 15:27 | Post Anesthesia Assessment ---
Date of Service February 07, 2023 Post Sedation Assessment Vital Signs Temp Pulse Pulse Resp BP BP Pulse Ox 02/07/23 14:17 92 H 20 182/136 H 97 02/07/23 11:17 96 02/07/23 11:17 37.1 C 84 20 110/74 96 02/07/23 09:36 02/07/23 09:36 82 20 145/91 H 97 02/07/23 08:48 77 02/07/23 08:44 78 17 155/112 H 98 02/07/23 08:10 76 18 155/112 H 97 02/07/23 07:43 02/07/23 06:38 91 H 18 158/113 H 95 02/07/23 04:42 107 H 16 96 02/07/23 04:41 111 H 16 160/119 H 96 02/07/23 04:36 112 H 02/07/23 04:13 36.1 C L 124 H 18 194/100 H 96 Pulse Ox O2 Del Method O2 Del Method 02/07/23 14:17 Room Air 02/07/23 11:17 Room Air 02/07/23 11:17 Room Air 02/07/23 09:36 97 Room Air 02/07/23 09:36 Room Air 02/07/23 08:48 02/07/23 08:44 Room Air 02/07/23 08:10 Room Air 02/07/23 07:43 Room Air 02/07/23 06:38 Room Air 02/07/23 04:42 Room Air 02/07/23 04:41 Room Air 02/07/23 04:36 02/07/23 04:13 Room Air Recovery Score Activity: Moves 4 extremities Respiration: Deep Breath/Cough Circulation: +/-20% PreAnes Value Consciousness: Arouseable (by name) Oxygen Saturation: > 92% On Room Air Discharge Sedation Level of Care: Phase I Post Sedation Plan On clinical assessment, the patient appears to have tolerated the sedation without complications. Patient is recovering as anticipated. Patient will continue to be monitored by nursing and may be discharged when sedation discharge criteria are met per below protocol. Upon Completions of procedure up to 15 minutes continue every 5 minute vital signs and the P.A.R. score; then discharge to a Phase I or Fast Track to Phase II per the following guidelines: * Discharge Patient to appropriate Phase II area if PAR is 8 or greater or return to pre- procedure baseline. The post - procedure orders will be as directed. * If PAR score is less than 8 or not return to pre-procedure baseline then patient will follow Phase I monitoring till PAR is reached for Phase II. The Phase I may be done in procedure room or may call to secure a Phase I area. * If naloxone or flumazenil are used for reversal, hold in Phase I for continued monitoring from when last reversal dose was given for a minimum of 60 minutes or longer pending the nurse and/or physician discretion of patient condition before discharge to Phase II. Please call the Sedation Physician to re-evaluate and complete post-note for discharge to Phase II area. Do NOT discharge from procedure sedation or Phase 1 until post- sedation evaluation note is complete by procedure /sedation MD Sedation Discharge Instructions to be given to the patient at discharge to home.
--- NOTE | 2023-02-07 15:35 | Cardiac Catheterization ---
Cardiac Cath Procedure Full Procedure Date February 07, 2023 Pre-Procedure Diagnosis Pre-Procedure Diagnosis: Non STEMI and Cardiomyopathy AUC Score AUC Score: 7 Post-Procedure Diagnosis Post-Procedure Diagnosis: Normal Coronary Arteries Procedure(s) Performed Procedure(s) Performed: Coronary Angiography and Left Heart Cath Telesales Advisor Feng Carney DO Parent Partner(s) Ezequiel RTR Estimated Blood Loss Estimated Blood Loss: 5cc Summary of Findings Normal coronary anatomy. Hemodynamics Rest Ao:: 130/78/106 Final Ao: 171/78/115 LV: 174/5/18 Recommendations Recommendations: Medical Therapy and/or Counseling Specimens Specimens: None Radiation Exposure (mGy) 869 Contrast (mls) 50 Fluids (cc crystalloids) Fluids (cc crystalloids): 60 Nss Drains Drains: N/A Anesthesia Moderate sedation. Start 1458. End 1520. Seadtion monitor: Hansel Gates RN Procedural Complication(s) None Disposition Material Assistant Holding/Recovery I attest to the content of the Intraoperative Record and any orders documented therein. Any exceptions are noted below. ACC Data: Material Assistant Cardiac Status Clinical evaluation leading to the procedure 32-year male admitted to the emergency department with chest discomfort, elevated troponin, and abnormal ECG with lateral ischemic changes. Echocardiogram demonstrated mild left ventricular systolic dysfunction, left ventricular hypertrophy, and mild diffuse hypokinesis. CAD Presenation: Non STEMI Anginal Classification: CCS IV STEMI OR Non-STEMI Symptom Onset Date: 02/03/23 Symptom Onset Time: 19:00 Thrombolytics: No Coronary Anatomy Dominant: Right Left Main (% Stenosis): Normal LAD (% Stenosis): Normal D1 (% Stenosis): Normal D2 (% Stenosis): Normal Circumflex (% Stenosis): Normal OM1 (% Stenosis): Normal L PL1 (% Stenosis): Normal RCA (% Stenosis): Normal R PDA (% Stenosis): Normal R PL1 (% Stenosis): Normal R PL2 (% Stenosis): Normal AM (% Stenosis): Normal Diagnostic Physicians Name: Feng Carney DO Closure Device Percutaneous Entry Location: Radial Closure Device: Radial Band Recommendations: Medical Therapy and/or Counseling Intraprocedure Events Significant Disection: No Perforation: No
[2023-02-07] MEDS: carvediloL 3.125 MG TAB PO SCH (18:30)
[2023-02-08] MEDS: NITROGLYCERIN 2% OINTMENT 30GM TUBE EXT SCH ×2 (01:07→07:53)
[2023-02-08 05:49] LABS: Basophils # (auto) 0.06 K/uL (0.00-0.20); Basophils % (auto) 0.6 %; Eosinophils # (auto) 0.17 K/uL (0.00-0.50); Eosinophils % (auto) 1.7 %; Hematocrit (blood only) 44.4 % (42.0-52.0); Hemoglobin 14.4 g/dl (14.0-18.0); Immature Granulocytes # (auto) 0.03 K/uL (0.01-0.20); Immature Granulocytes % (auto) 0.3 %; Lymphocytes # (auto) 2.83 K/uL (1.20-3.40); Lymphocytes % (auto) 27.7 %; Mean Corpuscular Hemoglobin 28.8 pg (25.0-34.0); Mean Corpuscular Hgb Conc 32.4 g/dL (32.0-36.0); Mean Corpuscular Volume 88.8 fL (80.0-100.0); Monocytes # (auto) 0.86 K/uL (0.11-0.59); Monocytes % (auto) 8.4 %; Neutrophils # (auto) 6.25 K/uL (1.40-6.50); Neutrophils % (auto) 61.3 %; Platelet Count 246 K/uL (130-400); RDW Coefficient of Variation 12.7 % (11.5-14.5); RDW Standard Deviation 41.4 fL (36.4-46.3)
[2023-02-08 05:59] LABS: Anion Gap 6 (3-11); BUN Creatinine Ratio 10.6 (10-20); Blood Urea Nitrogen 13 mg/dl (6-23); Calcium 8.8 mg/dl (8.6-10.3); Carbon Dioxide 31 mmol/L (21-32); Chloride 100 mmol/L (98-107); Chol HDL Ratio 5.3 (0-5); Cholesterol 144 mg/dl (0-200); Creatinine Clr Calc Pharmacy 130.9 ml/min; Est GFR (African American) 90.1 ml/min; Est GFR (Non-African American) 77.7 ml/min; Glucose 103 mg/dl (70-99(Fasting)); HDL Cholesterol 27 mg/dl; LDL Cholesterol Calculated 84 mg/dl; Sodium 137 mmol/L (136-145); Triglycerides 166 mg/dl (0-150); VLDL Cholesterol 33 mg/dl (0-30)
[2023-02-08 07:33] LABS: Estimated Average Glucose 114 mg/dl; Hemoglobin A1C 5.6 % (4.5-5.6)
[2023-02-08] MEDS: carvediloL 3.125 MG TAB PO SCH (07:52)
[2023-02-08] MEDS: ATORVASTATIN 40 MG TAB PO SCH (07:52)
[2023-02-08] MEDS: amLODIPine BESYLATE 5 MG TAB PO SCH (07:52)
[2023-02-08] MEDS: LOSARTAN/HCTZ 50/12.5MG TAB PO SCH (07:53)
[2023-02-08] MEDS: ENOXAPARIN INJ 40 MG/0.4 ML SYR SQ SCH (07:53)
[2023-02-08] MEDS: PANTOprazole 40 MG TAB PO SCH (07:53)
--- NOTE | 2023-02-08 08:48 | Electrocardiogram Report ---
Test Reason : Blood Pressure : / mmHG Vent. Rate : 093 BPM Atrial Rate : 093 BPM P-R Int : 170 ms QRS Dur : 106 ms QT Int : 396 ms P-R-T Axes : 042 -03 131 degrees QTc Int : 492 ms Normal sinus rhythm Possible Left atrial enlargement Left ventricular hypertrophy with repolarization abnormality Prolonged QT Abnormal ECG When compared with ECG of 07-FEB-2023 04:22, No significant change was found Confirmed by Eugene Adames ([id number]) on 02/08/2023 8:48:31 AM Referred By: REFERRED SELF Confirmed By:Vladimir Adames
[2023-02-08] MEDS ORDERED: ASPIRIN 81 MG ECTAB PO SCH (09:00)
--- NOTE | 2023-02-08 11:30 | Cardiology Progress Note ---
Date of Service February 08, 2023 Assessment & Plan (1) Chest pain at rest: (2) Hypertensive urgency: (3) Elevated troponin: (4) Hyperkinetic heart disease: Plan 32-year-old male presenting to the [facility] ER with four days of resting chest tightness associated with nausea, fatigue, sensation of feeling the heart pounding hard and fast. Initial EKG with sinus tachycardia with subtle ST depression. High-sensitivity troponin mildly elevated at 34.0 then 40.4 pg/mL. Resting echocardiography with mildly reduced LV systolic function, EF 45 to 50%, with moderate concentric LVH, mild global hypokinesis. February 07, 2023 right radial coronary angiography with normal epicardial coronary arteries, LVEDP 8. GDMT discussed. Discontinue amlodipine 2.5 mg/day Increase carvedilol to 6.25 mg twice per day Continue losartan and hydrochlorothiazide as prescribed. Recommend outpatient evaluation and treatment for suspected sleep apnea Outpatient cardiology follow-up as scheduled with Ms. Reina on 02/27/2023 at 3:00 PM Medication compliance discussed Admission and Anticipated Discharge Date Admission Date: February 07, 2023 Supervising Physician Co-Signing Physician Notes Supervising Physician: Case discussed with Lauro Davis PA-C. I agree with the physician assistant store manager trainee's findings and plan as documented . Unfortunately, patient was discharged prior to me having the opportunity to examine him in person. Proceed with medication changes as outlined above. [place], DO Subjective Patient seen and examined. Chart, medications, telemetry reviewed. No chest pain. No shortness of breath. No orthopnea. No peripheral edema. Telemetry: Sinus in the 70s, currently 77 bpm February 07, 2023 TTE Interpretation Summary ([facility], Dr. Carney): Technically limited. No comparison study available. Mildly reduced LV systolic function. EF 45 to 50%. Moderate concentric LVH. Mild global hypokinesis of the LV. Mild aortic regurgitation. Abnormal LV relaxation via pulse-wave TDI of the anterior and posterior mitral annulas. February 07, 2023 Coronary Angiography ([facility], Dr. Carney): Normal coronary arteries. LVEDP 8. Review of Systems Review of Systems: Complete review of systems is as state above, negative, or noncontributory. Physical Exam Physical Exam: General: A&Ox3. NAD. HENT: Normocephalic. Atraumatic. Eyes: PER. Conjunctiva pink, sclera clear. Neck: No carotid bruits. No JVD. No HJR. Heart: Regular at 76 bpm. No murmur. No rub. No gallop. PMI is nondisplaced. Lungs: Clear to auscultation. Abdomen: Obese. +BS. Soft. Nontender. No masses or organomegaly. Extremities: No clubbing, cyanosis, or edema. Right radial cath site ok Limited neurological examination is without focal deficits. Pulses: Posterior tibial=2/4. Results & Data Vital Signs (Past 12 Hours) Vital Signs Temp Pulse Pulse Resp BP Pulse Ox O2 Del Method 02/08/23 11:10 65 02/08/23 09:00 65 02/08/23 08:39 36.8 C 68 18 134/72 92 Room Air 02/08/23 03:00 36.8 C 86 16 127/82 96 Room Air Laboratory Results Cardiac Enzymes 02/07/23 02/07/23 02/07/23 Range/Units 11: 17:02 22:54 Troponin I High Sens 38.1 H 34.5 H 38.8 H (0-20) pg/ml Lipids 02/08/23 Range/Units 05:26 Triglycerides 166 H (0-150) mg/dl Cholesterol 144 (0-200) mg/dl HDL Cholesterol 27 mg/dl Cholesterol/HDL Ratio 5.3 H (0-5) CBC 02/08/23 Range/Units 05:26 WBC 10.20 (4.8-10.8) K/ul RBC 5.00 (4.70-6.10) M/uL Hgb 14.4 (14.0-18.0) g/dl Hct 44.4 (42.0-52.0) % Plt Count 246 (130-400) K/uL Neut # (Auto) 6.25 (1.40-6.50) K/uL Lymph # (Auto) 2.83 (1.20-3.40) K/uL [place] # (Auto) 0.86 H (0.11-0.59) K/uL Eos # (Auto) 0.17 (0.00-0.50) K/uL Baso # (Auto) 0.06 (0.00-0.20) K/uL Comprehensive Metabolic Panel 02/08/23 02/08/23 Range/Units 05:26 05:59 Sodium 137 (136-145) mmol/L Potassium TNP 3.7 Chloride 100 (98-107) mmol/L Carbon Dioxide 31 (21-32) mmol/L BUN 13 (6-23) mg/dl Creatinine 1.23 (0.6-1.4) mg/dl Glucose 103 H (70-99(Fasting)) mg/dl Calcium 8.8 (8.6-10.3) mg/dl Intake and Output 02/07/23 02/08/23 02/08/23 22:59 06:59 14:59 Intake Total 120 / 390.833 120 / 390.833 Output Total 450 / 450 Balance 120 / -59.167 -330 / -59.167 Intake: Oral 120 / 240 120 / 240 Output: Urine 450 / 450 Other: Weight 172.8 kg Weight Measurement Method Standing Scale
[2023-02-08] MEDS ORDERED: POTASSIUM CHLORIDE CRTAB 20 MEQ TABCR PO ONE (11:38)
--- NOTE | 2023-02-08 12:27 | Discharge Summary ---
Date of Service February 08, 2023 Admission HPI Per Admitting Provider 32-year-old male past medical history significant for prediabetes, history of gout, history of hypertensive urgency, morbid obesity, primary hypercoagulable state factor V, and ambulatory dysfunction presents with left-sided chest pressure also found to have hypertensive urgency. Having this pain for last few days but last night the pain got worse in the left side of the chest 4/10 in severity also with some nausea and fatigue. Denies any headache. No dizziness. No shortness of breath or cough. No fevers. No abdominal pain. Normal bowel and bladder movements. Patient recently saw cardiology on February 01 his blood pressure was 224/120. Seems he was noncompliant with medications .Was recommended to come to the ER for workup but patient declined. During that visit he declined any chest pain. He was prescribed losartan/hydrochlorothiazide 100/25 milligram daily and also amlodipine 2.5 mg daily. Patient states he is taking those medications. Past medical history. As mentioned above Past surgical history. None as per [facility] Social history.chews tobacco. Alcohol occasionally. No drug use. Family history. Father has allergies. Mother has allergies. Asthma. Thyroid disorder. Factor V Leiden. Admission Exam Per Admitting Provider General- Not in distress. Head- atraumatic Eyes- PERRL. ENT- oropharynx clear Neck- supple, no JVD. Lungs- clear to auscultation no wheezing or crackles. Heart- regular rhythm; no murmur, no gallop. Abdomen- normal bowel sounds, soft, nontender, no distension. Extremities- no pretibial edema, no erythema seen. Neuro- alert, oriented x 3; PERRL, no facial palsy; no dysarthria; moves extremities. Skin- warm & dry Principal Diagnosis Chest pain rule out ACS Hypertensive urgency Discharge Exam GENERAL: Alert and oriented x3. NAD, on RA. Obese class III. HEENT: No pallor, no icterus. Pupils equal, round and reactive to light. Oral mucosa moist. NECK: No JVD, no neck masses. HEART: S1 and S2 heard. Regular rate and rhythm. No murmur, no gallop. RESPIRATORY SYSTEM: Normal AP diameter. No accessory muscle use. No wheezing, no crackles. ABDOMEN: Soft, bowel sounds present, nontender, no distention. CENTRAL NERVOUS SYSTEM: No facial droop. Speech is clear. Obeys simple commands. Moves extremities. EXTREMITIES: No edema, no erythema seen. Discharge Data Allergies Allergy/AdvReac Type Severity Reaction Status Date / Time No Known Allergies Allergy Unknown Verified 04/29/20 15:49 Consultations 02/07/23 06:39 ED Decision to Admit Stat 02/07/23 09:20 Consult Cardiology Routine Procedures Performed Operation Date: 02/07/23 14:00 Actual Procedures p Cath, Left with Cors and Vent - Feng Carney DO s Cineradiography w/Routine Exam - Feng Carney DO Ordered Studies 02/07/23 04:33 CT angio chest PE protocol Stat 02/07/23 13:59 CL Cath Imgs for PACS use only Stat Hospital Course (1) Chest pain: Per prior attending with addendum: 32-year-old male past medical history significant for prediabetes, history of gout, history of hypertensive urgency, morbid obesity, primary hypercoagulable state factor V, and ambulatory dysfunction presents with left-sided chest pressure also found to have hypertensive urgency. Having this pain for last few days but last night the pain got worse in the left side of the chest 4/10 in severity also with some nausea and fatigue. Denies any headache. No dizziness. No shortness of breath or cough. No fevers. No abdominal pain. Normal bowel and bladder movements. Patient recently saw cardiology on February 01 his blood pressure was 224/120. Seems he was noncompliant with medications .Was recommended to come to the ER for workup but patient declined. During that visit he declined any chest pain. He was prescribed losartan/hydrochlorothiazide 100/25 milligram daily and also amlodipine 2.5 mg daily. Patient states he is taking those medications. Chest pain Initial troponin 30. If repeat troponins going up we will start on IV heparin Placed on Nitropaste Will follow echo keep him n.p.o. Cardiology consult Hypertensive urgency Seems noncompliant with medications continues home medications of losartan/hydrochlorothiazide and amlodipine Placed on Nitropaste Will monitor cardiology consulted Prediabetes Will follow HbA1c levels Morbid obesity Needs counseling May need sleep study Can do nocturnal pulse ox study while in the hospital Hypercoagulable state factor V CTA chest unremarkable DVT prophylaxis Placed on Lovenox Disposition Telemetry floor Full code Addendum: Patient was seen and examined at bedside for chest pain rule out ACS and hypertensive urgency. Compliance to medication has been discussed extensively with the patient. Patient underwent heart cath with normal coronaries. Patient with no further chest pain. Patient reports feeling better and back to his baseline. Following instructions were communicated to the patient at the point of discharge: Follow-up with your primary care physician within a week time and likely you will need labs CBC/CMP/magnesium/phosphorus. For your chest pain, you underwent heart cath with normal coronary arteries. For your hypertension, your blood pressure medication has been optimized. Discontinue your prior to arrival amlodipine. You have been started on carvedilol. Your losartan and hydrochlorothiazide combination tablet does has been reduced in half. As discussed at the bedside, you will benefit from formal sleep study for suspected sleep apnea. Coordinate with your PCP office to set up the test. Follow-up with cardiology upon discharge, you have been scheduled to follow-up on 02/27/2023 at 3 PM. Maintain medication compliance, as discussed at the bedside it is very important to prevent future complications from hypertension. Recommend heart healthy diet, lifestyle modification and weight loss. Coordinate with the PCP for long-term monitoring/management. Take your medications as prescribed. Please make sure that you are able to get your medications today by calling your pharmacy before you leave the hospital so that your treatment continuity is not broken. Home Health Attestation I certify that this patient is under my care and that I, or a physicians recovery assistant working with me, had a face to-face encounter that meets the home health [id number] encounter requirements with this patient. The encounter with the patient was in whole, or in part, for the following medical condition, which is the primary reason for home health care (list medical condition): I certify that, based on my findings, the following services are medically necessary home health services: My clinical findings support the need for the above services because: Further, I certify that my clinical findings support that this patient is homebound (i.e. absences from home require considerable and taxing effort and are for medical reasons or zoroastrian services or infrequently or of short d uration when for other reasons) because: Certification for Home Health Services: Based on the above findings, I certify that this patient is confined to the home and needs intermittent nursing home care, physical therapy and/or speech therapy or continues to need occupational therapy. The patient is under my care, and I have initiated the establishment of the plan of care. This patient will be followed by a physician who will periodically review the plan of care. Total Time Total Time Spent Total Time Spent (In Minutes): 45 Discharge Plan Discharge Items Patient Disposition: Home - Self-Care Reason For Visit: CHEST PAIN, HTN URGENCY Discharge Diagnosis: Chest pain rule out ACS Hypertensive urgency Condition on Discharge: Good Activity: Resume your previous activity Non-emergency contact: Primary Care Provider Call non-emergency contact if: you have any medication questions, your symptoms worsen and your temperature is above 101.5 Follow-up/Referrals: Kike Garcai DO [Primary Care Provider] - Diet: Heart Healthy Addtl Attending Provider Instructions: Follow-up with your primary care physician within a week time and likely you will need labs CBC/CMP/magnesium/phosphorus. For your chest pain, you underwent heart cath with normal coronary arteries. For your hypertension, your blood pressure medication has been optimized. Discontinue your prior to arrival amlodipine. You have been started on carved ilol. Your losartan and hydrochlorothiazide combination tablet does has been reduced in half. As discussed at the bedside, you will benefit from formal sleep study for suspected sleep apnea. Coordinate with your PCP office to set up the test. Follow-up with cardiology upon discharge, you have been scheduled to follow-up on 02/27/2023 at 3 PM. Maintain medication compliance, as discussed at the bedside it is very important to prevent future complications from hypertension. Recommend heart healthy diet, lifestyle modification and weight loss. Coordinate with the PCP for long-term monitoring/management. Take your medications as prescribed. Please make sure that you are able to get your medications today by calling your pharmacy before you leave the hospital so that your treatment continuity is not broken. Pending Studies at Discharge: No Stand-Alone Forms: My [employer] [employer], Smoking Cessation Medications and DC Order Prescriptions: New losartan-hydrochlorothiazide 50-12.5 mg Tablet 1 tab PO DAILY Qty: 30 0RF atorvastatin 20 mg Tablet 20 mg PO QAM Qty: 30 0RF carvedilol 6.25 mg Tablet 6.25 mg PO BIDM Qty: 60 0RF aspirin 81 mg Tablet,Delayed Release (Dr/Ec) 81 mg PO QAM Qty: 30 0RF pantoprazole 40 mg Tablet,Delayed Release (Dr/Ec) 40 mg PO QAM Qty: 30 0RF Discontinued amlodipine 2.5 mg tablet 2.5 mg PO DAILY losartan-hydrochlorothiazide 100-25 mg tablet 1 tab PO DAILY Discharge Orders: Discharge Order (Routine); Ordered 02/08/23 Ordered By: Nasir Quintero Admission Data Admit Date/Time: 02/07/23 07:07 Attending Provider: Nasir Quintero Admit Provider: Juan Manuel Murphy Primary Care Provider: Kike Garcia Other Providers: Juan Manuel Murphy; Sunita Mcgregor; [place]; Dony Sanders; Feng Carney; Rinku Rudd; Lauro Davis; Kelsey Khalil; Sushila Chambers; Sunita Reina; Joseph Porter; Leroy Reeder; Divine De La Rosa; Idalia Pham; Greg Lewis; Jabari Harley
[2023-02-08] MEDS ORDERED: carvediloL 6.25 MG TAB PO SCH (17:00)
[2023-02-09] MEDS ORDERED: ATORVASTATIN 20 MG TAB PO SCH (09:00)
== END 2023-02-08 12:51 | disposition home or self-care (01) | DRG 287 ==
LOC: ED 04:05 → SUATTDRO 07:07 → EDINP 07:07 → 2E 16:08
DX: I16.0 Hypertensive urgency; R73.03 Prediabetes; M10.9 Gout, unspecified; D68.51 Activated protein C resistance; R94.31 Abnormal electrocardiogram [ECG] [EKG]; F17.220 Nicotine dependence, chewing tobacco, uncomplicated; E66.01 Morbid (severe) obesity due to excess calories; Z91.148 Patient's other noncompliance with medication regimen for other reason; Z68.43 Body mass index [BMI] 50.0-59.9, adult; G47.00 Insomnia, unspecified; Z83.3 Family history of diabetes mellitus; I10 Essential (primary) hypertension